=== PATIENT | female | born 1940 | race Caucasian/White ===

== ENCOUNTER 2017-09-14 21:42 | Inpatient (IN) | payer MEDICAID, MEDICARE ==
[~2017-09-14] VITALS: Ht 167.6 cm; Wt 72.6 kg
--- NOTE | 2017-09-14 22:16 | NUR ---
PT TO ER BED 18. BIBRA FROM HOME C/O SOB, PER PARAMEDSICS SATING 89% RA, PLACED ON NRB STERILIZER MACHINE OPERATOR. NOW O2 SAT 100%. RALES BILAT. PT PLACED IN GOWN AND ON PRIMARY SCHOOL TEACHER LIBRARIAN. VSS/RESP TACHYPNEIC/NAD NOTED/SKIN WARM AND DRY/DENIES N-V-D. AWAITING MD MORGAN.
--- NOTE | 2017-09-14 22:30 | NUR ---
20G IV X 1 ATTEMPT TO R HAND USING ASEPTIC TECH, BLOOD CULT X 2 AND BLOOD HANDED OVER TO THE LAB AT THE BEDSIDE. IV FLUSHES EASILY WITH NS, NO S/S INFILTRATION.
[2017-09-14 22:40] LABS: HEMATOCRIT 24 % (33-45); HEMOGLOBIN 7.8 g/dL (11.5-14.8); MEAN CORPUSCULAR HGB CONC 32 g/dl (31.0-36.0); MEAN CORPUSCULAR VOLUME 92 fL (82-100); MONOCYTES % (AUTO) 3.9 % (2.0-12.0); NEUTROPHILS # (AUTO) 23.3 /CMM (1.8-8.9); NEUTROPHILS % (AUTO) 92.1 % (43.0-81.0); PLATELET COUNT (AUTO) 212 /CMM (150-450); RDW COEFFICIENT OF VARIATION 19.2 (11.5-15.0); RED BLOOD CELL COUNT(AUTO) 2.64 MIL/uL (4.0-5.2); WHITE BLOOD COUNT (AUTO) 25.3 K/uL (4.3-11.0)
--- NOTE | 2017-09-14 22:40 | NUR ---
URINE SPECIMEN OBTAINED AND SENT TO THE LAB.
[2017-09-14 22:51] LABS: INR 0.98 (0.87-1.13)
--- NOTE | 2017-09-14 22:51 | NUR ---
XRAY AT BEDSIDE.
--- NOTE | 2017-09-14 22:52 | NUR ---
RECTAL TEMP OF 100.8. MADE AWARE.
[2017-09-14] MEDS ORDERED: ACETAMINOPHEN 650 MG/SUPP.RECT RC ONE ×2 (22:53→23:00)
[2017-09-14 22:55] LABS: APPEARANCE,URINE SL CLOUDY (CLEAR); BILIRUBIN,URINE NEGATIVE (NEGATIVE); BLOOD, URINE TRACE Ery/uL (NEGATIVE); COLOR,URINE YELLOW (YELLOW); KETONES,URINE TRACE (NEGATIVE); LEUKOCYTE ESTERASE ,URINE TRACE (NEGATIVE); NITRITE, URINE NEGATIVE (NEGATIVE); PH,URINE 6.5 (5.0-8.0); PROTEIN,URINE 3+ mg/dl (NEGATIVE); UGLUCOSE 3+ mg/dL (NEGATIVE); UROBILINOGEN,URINE 0.2 EU/dL (0.2)
[2017-09-14 23:01] LABS: BACTERIA,URINE 1+ /HPF (None Seen); SQUAMOUS EPITHELIAL CELL,UR Moderate /HPF (None Seen); WBC,URINE 21-50 /HPF (0-3)
[2017-09-14 23:11] LABS: ALANINE AMINOTRANSFERASE 18 U/L (12-78); ALBUMIN 2.2 g/dL (3.4-5.0); ALKALINE PHOSPHATASE 119 U/L (46-116); ASPARTATE AMINOTRANSFERASE 26 U/L (15-37); BILIRUBIN,DIRECT 0.2 mg/dL (0.0-0.2); BILIRUBIN,TOTAL 0.5 mg/dL (0.2-1.0); CALCIUM, SERUM 8.1 mg/dL (8.5-10.1); CARBON DIOXIDE 31 mmol/L (21-32); CHLORIDE 94 mmol/L (98-107); CREATININE 3.7 mg/dL (0.6-1.3); GLUCOSE 418 mg/dL (74-106); POTASSIUM 3.6 mmol/L (3.5-5.1); SODIUM SERUM 134 mmol/L (136-145); TOTAL PROTEIN, SERUM 7.3 g/dL (6.4-8.2); UREA NITROGEN, BLOOD 39 mg/dL (7-18)
[2017-09-14] MEDS ORDERED: ASPIRIN 300 MG/SUPP.RECT RC ONE ×2 (23:30→23:31)
[2017-09-14] MEDS ORDERED: INSULIN REGULAR, HUMAN 100 UNIT/ML 3 ML VIAL IV ONE (23:30)
[2017-09-14 23:32] LABS: B-TYPE NATRIURETIC PEPTIDE 42340 PG/ML (0-125)
[2017-09-14] MEDS ORDERED: INSULIN REGULAR, HUMAN 100 UNIT/ML 10 ML VIAL ONE (23:32)
--- NOTE | 2017-09-14 23:43 | NUR ---
JOSE ALEJANDRO AT BEDSIDE. DIANA.
[2017-09-14 23:46] LABS: BAND % (MANUAL) 6 % (0.0-5.0); LYMPHOCYTES % (MANUAL) 3 % (16-48); MONOCYTES % (MANUAL) 5 % (0-11.0); NEUTROPHILS % (MANUAL) 86 (42-76)
--- NOTE | 2017-09-14 23:51 | NUR ---
CALLED NURSING SUP. FOR TELE BED
[2017-09-15] MEDS ORDERED: AZITHROMYCIN 500 MG in IV D5W 250 ML IV ONE ×2
[2017-09-15] MEDS ORDERED: CEFTRIAXONE 1GM BAG (ER ONLY) 1 GM/50 ML PIGGYBACK IV ONE
[2017-09-15] MEDS ORDERED: AZITHROMYCIN 500 MG VIAL ONE (00:01)
[2017-09-15] MEDS ORDERED: CEFTRIAXONE 1GM BAG (ER ONLY) 50 ML IV ONE (00:01)
[2017-09-15] MEDS ORDERED: LEVO125T8 PO (00:31)
[2017-09-15] MEDS ORDERED: CYAN100071 PO (00:31)
[2017-09-15] MEDS ORDERED: FOLI1TAB16 PO (00:31)
[2017-09-15] MEDS ORDERED: ASPI-605 PO (00:31)
[2017-09-15] MEDS ORDERED: INSU100V7 SQ (00:31)
[2017-09-15] MEDS ORDERED: ALLO100T PO (00:31)
[2017-09-15] MEDS ORDERED: HYDR100T27 PO (00:31)
[2017-09-15] MEDS ORDERED: SEVE800T8 PO (00:31)
[2017-09-15] MEDS ORDERED: CARV6.252 PO (00:31)
[2017-09-15] MEDS ORDERED: AMIO100T PO (00:31)
[2017-09-15] MEDS ORDERED: ATOR40TA PO (00:31)
[2017-09-15] MEDS ORDERED: FURO-144 PO (00:31)
[2017-09-15] MEDS ORDERED: AMLO5TAB7 PO (00:31)
[2017-09-15] MEDS ORDERED: MEGE40TA GT (00:31)
[2017-09-15] MEDS ORDERED: LISI10TA5 PO (00:31)
--- NOTE | 2017-09-15 00:41 | NUR ---
ENDORSED TO MAYLIN MONTES FOR [facility]I. PT ANDREE TO TELE 306-2.
[2017-09-15 01:00] VITALS: BP 89/45
--- NOTE | 2017-09-15 01:00 | NUR ---
DRY ROOM OPERATORGLOBAL MARKETING OPERATIONS MANAGER NOTE 0100 RECEIVED PT VIA GURMIGUELITO ACCOMPANIED BY ER STAFF AND DEO SCHWAB IN STABLE CONDITION. PT IS ASLEEP, EASILY AROUSABLE. RESPONSIVE UPON NAME AND TOUCH. AFEBRILE. PUPILS ARE REACTIVE TO LIGHT. BILATERAL HAND VETERINARY LABORATORY TECHNICIAN ARE EQUAL. CURRENTLY ON O2 @3L/MIN VIA NC, SATURATING AT 98%. NOTED WITH USE OF ACCESSORY MUSCLES WITH RESPIRATIONS. PT'S BLOOD PRESSURE NOTED TO BE 89/45 UPON ADMISSION, THEN TRENDED DOWN TO 70/41. RECEIVED ORDERS PER JUSTIN ADKINS FOR IV NS 500ML BOLUS. BP INCREASED TO 94/45. ABDOMEN IS ROUND, SOFT AND NONDISTENDED. NO BLADDER DISCOMFORT. IV SITE TO RAC AND LEFT HAND GAUGE 20, NO INFILTRATION NOTED. DRESSING KEPT CLEAN AND DRY. NOTED WITH SACRAL REDNESS, 4 ZACKARY TO AMBIKA (POSSIBLE OLD AV SHUNT), STITCHES NOTED ABOVE PERMA CATH TO LEFT UPPER CHEST. PHOTOS TAKE AND PLACED IN PT'S CHART. DIE SIZER JUSTIN ADKINS AWARE OF ADMISSION WITH ORDERS NOTED AND CARRIED OUT. SAFETY MEASURES ARE IN PLACE. BED IS IN ITS LOW AND LOCKED POSITION. INSTRUCTED PT TO USE CALL LIGHT WHEN ASSISTANCE IS NEEDED, CALL LIGHT IS LEFT WITHIN REACH. WILL CONTINUE TO MONITOR.
--- NOTE | 2017-09-15 01:02 | NUR ---
PT TRANSPORTED VIA STRETCHER TO [facility] 306-2 ON BOILING TUB OPERATOR WITH RN PER ACLS PROTOCOL. VSS.
[2017-09-15] MEDS ORDERED: IV NS 0.9% 500 ML IV ONE (02:00)
[2017-09-15 04:00] VITALS: BP 101/47
[2017-09-15] MEDS ORDERED: HEPARIN INFUSION/D5W 500 ML IV PRN (04:30)
[2017-09-15] MEDS ORDERED: ONDANSETRON HCL/PF 4 MG/2 ML VIAL IVP PRN (04:30)
[2017-09-15] MEDS ORDERED: ACETAMINOPHEN 325 MG TABLET PO PRN (04:30)
[2017-09-15] MEDS ORDERED: MORPHINE SULFATE INJ 2 MG/ML DISP.SYRIN IV PRN (04:30)
[2017-09-15] MEDS ORDERED: IV NS 0.9% 1,000 ML IV PRN (04:30)
[2017-09-15] MEDS: NITROGLYCERIN PACKET 1 GM PACKET TOP SCH ×3 (06:00→17:21)
[2017-09-15] MEDS: BLOOD SUGAR DIAGNOSTIC 1 EACH STRIP IN SCH ×3 (06:11→17:33)
[2017-09-15] MEDS: INSULIN REGULAR, HUMAN 100 UNIT/ML 3 ML VIAL SQ PRN ×3 (06:19→17:35)
--- NOTE | 2017-09-15 06:50 | NUR ---
SPOT WASHER NOTES TRAPPER ANIMAL JUSTIN ADKINS MADE AWARE OF LOW BP AND WITHOLDING TOPICAL NITRO D/T LOW BP W/ NO NEW ORDERS AT THIS TIME. ENDORSED TO DAY SHIFT NURSE.
--- NOTE | 2017-09-15 06:52 | NUR ---
KINDERGARTEN PREP TEACHER CLOSING NOTES NEEDS MET AND RENDERED. SLEEPY BUT EASILY AROUSABLE. RESPIRATIONS ARE EVEN AND UNLABORED, NOT IN ANY ACUTE DISTRESS NOTED. CURRENTLY ON O2 @3L/MIN VIA NC, TOLERATING WELL. NO FACIAL GRIMACING OR MOANING NOTED. IV SITE INTACT, NO INFILTRATION NOTED. DRESSING KEPT CLEAN AND DRY. SAFETY MEASURES ARE IN PLACE. BED IS IN ITS LOWEST AND LOCKED POSITION. WILL ENDORSE TO NEXT SHIFT FOR CONTINUITY OF CARE.
--- NOTE | 2017-09-15 07:05 | NUR ---
RN NOTES PT IS RESTING IN BED, AWAKE, WITH FAMILY AT BEDSIDE. PT ON 3L O2, RESPIRATIONS ARE EVEN AND UNLABORED. IV ON RAC INTACT AND RUNNING NS @ 75ML/HR. SAFETY MEASURES ARE IN PLACE, CALL LIGHT IS IN REACH. WILL CONTINUE TO MONITOR.
[2017-09-15 08:00] VITALS: BP 89/46
[2017-09-15] MEDS: SEVELAMER CARBONATE 800 MG TABLET PO SCH ×3 (08:08→17:33)
[2017-09-15] MEDS: FOLIC ACID 1 MG TABLET PO SCH (08:08)
[2017-09-15] MEDS: LEVOTHYROXINE SODIUM 125 MCG TABLET PO SCH (08:08)
[2017-09-15] MEDS: ALLOPURINOL 100 MG TABLET PO SCH (08:08)
[2017-09-15] MEDS: ASPIRIN EC 81 MG TABLET.DR PO SCH (08:08)
[2017-09-15] MEDS: MEGESTROL ACETATE 40 MG TABLET GT SCH (08:08)
[2017-09-15] MEDS: hydrALAZINE HCL 50 MG TABLET PO SCH ×3 (08:09→17:00)
[2017-09-15] MEDS: AMIODARONE HCL 200 MG TABLET PO SCH (08:09)
[2017-09-15] MEDS ORDERED: LISINOPRIL (10MG) 10 MG TABLET PO SCH (09:00)
[2017-09-15] MEDS ORDERED: ASPIRIN EC 81 MG TABLET.DR PO SCH (09:00)
[2017-09-15] MEDS ORDERED: FUROSEMIDE 40 MG TABLET PO SCH (09:00)
[2017-09-15] MEDS ORDERED: AMLODIPINE BESYLATE 5 MG TABLET PO SCH (09:00)
[2017-09-15] MEDS ORDERED: CARVEDILOL 6.25 MG TABLET PO SCH (09:00)
[2017-09-15] MEDS ORDERED: EPOETIN ALFA (10,000 UNIT) 10,000 UNIT/ML VIAL IV ONE (09:00)
[2017-09-15] MEDS ORDERED: ALBUMIN 25% 25 GM in PREMIX 1 EA IV PRN (10:00)
--- NOTE | 2017-09-15 10:00 | NUR ---
RN NOTES SPOKE WITH PHARMACY ABOUT HEPARIN DRIP ORDERED DURING HEALTH AND SOCIAL CARE TEACHER AT 0430. NO HEPARIN CALCULATION FORM WAS FAXED TO PHARMACY BY HEALTH AND SOCIAL CARE TEACHER RN. NO ENDORSEMENT WAS GIVEN TO START HEPARIN DRIP. WILL FAX HEPARIN DOSING FORM TO PHARMACY TO INITIATE HEPARIN BOLUS AND DRIP.
[2017-09-15 10:46] LABS: EOSINOPHILS % (AUTO) 0.2 % (0.0-6.0); HEMATOCRIT 26 % (33-45); HEMOGLOBIN 8.4 g/dL (11.5-14.8); LYMPHOCYTES # (AUTO) 0.6 /CMM (0.8-4.8); LYMPHOCYTES % (AUTO) 2.2 % (20.0-44.0); MEAN CORPUSCULAR HGB CONC 33 g/dl (31.0-36.0); MEAN CORPUSCULAR VOLUME 92 fL (82-100); MONOCYTES # (AUTO) 1.3 /CMM (0.1-1.30); MONOCYTES % (AUTO) 4.8 % (2.0-12.0); NEUTROPHILS # (AUTO) 25.9 /CMM (1.8-8.9); NEUTROPHILS % (AUTO) 92.8 % (43.0-81.0); PLATELET COUNT (AUTO) 209 /CMM (150-450); RDW COEFFICIENT OF VARIATION 19.9 (11.5-15.0); RED BLOOD CELL COUNT(AUTO) 2.82 MIL/uL (4.0-5.2); WHITE BLOOD COUNT (AUTO) 27.9 K/uL (4.3-11.0)
[2017-09-15] MEDS ORDERED: FEE PK DOSING 1 MIN EA MC ONE (11:23)
[2017-09-15] MEDS ORDERED: VANCOMYCIN 500 MG in IV D5W 100 ML IV PRN (11:30)
[2017-09-15] MEDS ORDERED: HEPARIN SODIUM, PORCINE 5000 UNITS/1 ML VIAL IV ONE (11:30)
--- NOTE | 2017-09-15 11:40 | NUR ---
RN NOTES SPOKE WITH DR. BELL ABOUT STARTING HEPARIN DRIP. DR. BELL SAID TO DISCONTINUE THE DRIP AND INSTEAD ORDER HEPARIN 5,000 UNITS Q12 HRS.
[2017-09-15] MEDS: PIPERACILLIN /TAZOBACTAM 2.25 G in IV D5W 50 ML IV SCH ×2 (12:18→20:51)
[2017-09-15] MEDS: HEPARIN SODIUM, PORCINE 5000 UNITS/1 ML VIAL SQ SCH ×2 (12:20→20:59)
--- NOTE | 2017-09-15 12:47 | NUR ---
RN NOTES PT DOES NOT WANT TO EAT AT THIS TIME, TIRED FROM DIALYSIS. DID NOT GIVE REGULAR INSULIN WITH ACCUCHECK TO PREVENT HYPOGLYCEMIA.
[2017-09-15] MEDS ORDERED: VANCOMYCIN 1 GM in IV D5W 250 ML IV ONE (13:00)
[2017-09-15 13:28] LABS: ALANINE AMINOTRANSFERASE 18 U/L (12-78); ALBUMIN 2.1 g/dL (3.4-5.0); ALKALINE PHOSPHATASE 123 U/L (46-116); ASPARTATE AMINOTRANSFERASE 26 U/L (15-37); BILIRUBIN,TOTAL 0.4 mg/dL (0.2-1.0); CALCIUM, SERUM 8.2 mg/dL (8.5-10.1); CARBON DIOXIDE 33 mmol/L (21-32); CHLORIDE 97 mmol/L (98-107); CREATININE 2.5 mg/dL (0.6-1.3); GLUCOSE 189 mg/dL (74-106); SODIUM SERUM 136 mmol/L (136-145); TOTAL PROTEIN, SERUM 7.2 g/dL (6.4-8.2); UREA NITROGEN, BLOOD 24 mg/dL (7-18)
[2017-09-15 13:32] LABS: POTASSIUM 2.8 mmol/L (3.5-5.1)
[2017-09-15 13:36] LABS: BAND % (MANUAL) 5 % (0.0-5.0); LYMPHOCYTES % (MANUAL) 3 % (16-48); MONOCYTES % (MANUAL) 2 % (0-11.0); NEUTROPHILS % (MANUAL) 90 (42-76)
--- NOTE | 2017-09-15 13:54 | NUR ---
RN NOTES NOTIFIED POTASSIUM DROPPED FROM 3.6 LAST NIGHT TO 2.8 THIS AFTERNOON, POST DIALYSIS. DR. BHARDWAJ WAS MADE AWARE AND SAID IT DOES NOT NEED TO BE REPLACED AT THIS TIME.
[2017-09-15 16:00] VITALS: BP 95/50
--- NOTE | 2017-09-15 17:20 | NUR ---
RN NOTES PRELIMINARY BLOOD CULTURE CAME BACK POSITIVE. NOTIFIED DR. BHARDWAJ, NO NEW ORDERS NEEDED AT THIS TIME.
[2017-09-15] MEDS ORDERED: ATORVASTATIN 40 MG TABLET PO SCH (18:00)
--- NOTE | 2017-09-15 18:39 | NUR ---
RN NOTES PT IS SITTING UP IN BED, RESTING COMFORTABLY. PT ON 3L O2, RESPIRATIONS ARE EVEN AND UNLABORED. IV ON LAC INTACT AND SL. ALL MEDS WERE GIVEN ORDERED AND PT NEEDS MET. PT HAD DIALYSIS WITH 2.8L OUTPUT. LAST ACCUCHECK 217, 8 UNITS GIVEN. SAFETY MEASURES ARE IN PLACE, CALL LIGHT IS IN REACH. WILL ENDORSE TO BAFFLE INSTALLER RN FOR CONTINUITY OF CARE.
--- NOTE | 2017-09-15 19:05 | NUR ---
RN OPENING NOTES RECEIVED PATIENT IN BED, ASLEEP, AROUSABLE WITH TOUCH, OPENED EYES, NODDED AND WENT BACK TO SLEEP. PATIENT NOTED TO BE RECEIVING O2 VIA NC @3LPM, NO SOB, BREATHING EVEN AND UNLABORED AND IN NO ACUTE DISTRESS. PATIENT ON TELE MONITORING HR @70 BPM. WILL CONTINUE TO MONITOR PT.
[2017-09-15 20:00] VITALS: BP 92/42
[2017-09-15] MEDS: INSULIN GLARGINE, 100 UNIT/ML CARTRIDGE SQ SCH (21:35)
[2017-09-15] MEDS ORDERED: AZITHROMYCIN 500 MG in IV D5W 250 ML IV SCH (23:00)
[2017-09-16] VITALS: BP 91/46
[2017-09-16] MEDS ORDERED: CEFTRIAXONE 1 G in IV NS 0.9% 50 ML IV SCH ×2
[2017-09-16] MEDS: BLOOD SUGAR DIAGNOSTIC 1 EACH STRIP IN SCH ×5 (00:03→23:55)
[2017-09-16] MEDS: INSULIN REGULAR, HUMAN 100 UNIT/ML 3 ML VIAL SQ PRN ×3 (00:22→12:05)
[2017-09-16 04:00] VITALS: BP 97/43
[2017-09-16] MEDS: PIPERACILLIN /TAZOBACTAM 2.25 G in IV D5W 50 ML IV SCH ×3 (04:19→21:25)
[2017-09-16] MEDS: NITROGLYCERIN PACKET 1 GM PACKET TOP SCH ×2 (06:00)
[2017-09-16 06:25] LABS: BASOPHILS % (AUTO) 0.1 % (0.0-2.0); EOSINOPHILS % (AUTO) 0.5 % (0.0-6.0); HEMATOCRIT 25 % (33-45); HEMOGLOBIN 8.3 g/dL (11.5-14.8); LYMPHOCYTES % (AUTO) 3.9 % (20.0-44.0); MEAN CORPUSCULAR HGB CONC 33 g/dl (31.0-36.0); MEAN CORPUSCULAR VOLUME 93 fL (82-100); MONOCYTES # (AUTO) 1.4 /CMM (0.1-1.30); MONOCYTES % (AUTO) 5.4 % (2.0-12.0); NEUTROPHILS # (AUTO) 22.6 /CMM (1.8-8.9); NEUTROPHILS % (AUTO) 90.1 % (43.0-81.0); PLATELET COUNT (AUTO) 194 /CMM (150-450); RED BLOOD CELL COUNT(AUTO) 2.72 MIL/uL (4.0-5.2); WHITE BLOOD COUNT (AUTO) 25.1 K/uL (4.3-11.0)
[2017-09-16 07:02] LABS: CHOLESTEROL 112 mg/dL (<200); HDL CHOLESTEROL 20 mg/dL (40-60); LDL 46 mg/dL (0-99); THYROID STIMULATING HORMONE 8.872 uIU/mL (0.358-3.74); TRIGLYCERIDES 135 mg/dL (30-150)
--- NOTE | 2017-09-16 07:02 | NUR ---
RN CLOSING TELE NOTES PATIENT IN BED, ASLEEP, AROUSABLE BY TOUCH, IN NO ACUTE DISTRESS, NO SOB NOTED, BREATHING EVEN AND UNLABORED, CONTINUES TO RECEIVE 02 VIA NC @ 3LPM, PATIENT ALERT AND ORIENTED X 2-3, ABLE TO MAKE NEEDS KNOWN AT TIMES. CALL LIGHT PLACED WITHIN EASY REACH, BED LOCKED IN LOW POSITION, ON TELE MONITORING WITH SR@ 70 BPM. WILL ENDORSE TO AM SHIFT NURSE FOR CONTINUITY OF CARE.
[2017-09-16 07:10] LABS: ALANINE AMINOTRANSFERASE 21 U/L (12-78); ALBUMIN 1.9 g/dL (3.4-5.0); ALKALINE PHOSPHATASE 103 U/L (46-116); ASPARTATE AMINOTRANSFERASE 23 U/L (15-37); BILIRUBIN,TOTAL 0.4 mg/dL (0.2-1.0); CALCIUM, SERUM 7.9 mg/dL (8.5-10.1); CARBON DIOXIDE 31 mmol/L (21-32); CHLORIDE 94 mmol/L (98-107); CREATININE 3.8 mg/dL (0.6-1.3); GLUCOSE 211 mg/dL (74-106); MAGNESIUM 2.1 mg/dL (1.8-2.4); PHOSPHORUS 3.2 mg/dL (2.5-4.9); SODIUM SERUM 134 mmol/L (136-145); TOTAL PROTEIN, SERUM 6.8 g/dL (6.4-8.2); UREA NITROGEN, BLOOD 39 mg/dL (7-18)
--- NOTE | 2017-09-16 07:11 | NUR ---
COMPRESS ENGINEER OPENING NOTE RECEIVED BEDSIDE SBAR REPORT ON THE PATIENT. PATIENT IS A/O X2, ASLEEP, EASILY AWAKEN IN BED. PATIENT NODS WITH THE HEAD TO ANSWER ALL THE QUESTIONS, BUT DOES NOT LIKE TO SPEAK. PATIENT IS LAYING IN BED. BED IS LOCKED IN LOWEST POSITION, SIDE RAILS UP X3. BED ALARM IS ON. CHEST IS RISING EQUALLY BILATERALLY. DENIES CHEST PAIN/DISCOMFORT AT THIS TIME. EXTERNAL HYDROPRESS OPERATOR READING AFIB 82. RCW CARDIAC PACEMAKER PRESENT. PATIENT IS ON 3L VIA NASAL CANULA SPO2 95%. ALL NEEDS ARE MET. CALL LIGHT WITHIN REACH. EDUCATED TO USE CALL LIGHT TO CALL FOR ASSISTANCE. PATIENT VERBALIZED UNDERSTANDING. WILL CONTINUE TO ASSESS/MONITOR THROUGHOUT THE SHIFT.
[2017-09-16 08:00] VITALS: BP 94/54
--- NOTE | 2017-09-16 08:12 | NUR ---
PATIENT RECEIVING BED BATH. WILL COME TO ADMINISTER MEDIATION LATER.
[2017-09-16 09:25] LABS: BAND % (MANUAL) 8 % (0.0-5.0); EOSINOPHILS % (MANUAL) 1 % (0-4); LYMPHOCYTES % (MANUAL) 1 % (16-48); MONOCYTES % (MANUAL) 6 % (0-11.0); MYELOCYTES % 1 % (0-0); NEUTROPHILS % (MANUAL) 83 (42-76)
[2017-09-16] MEDS: ALLOPURINOL 100 MG TABLET PO SCH (09:36)
[2017-09-16] MEDS: FOLIC ACID 1 MG TABLET PO SCH (09:37)
[2017-09-16] MEDS: LEVOTHYROXINE SODIUM 125 MCG TABLET PO SCH (09:37)
[2017-09-16] MEDS: ASPIRIN EC 81 MG TABLET.DR PO SCH (09:39)
[2017-09-16] MEDS: MEGESTROL ACETATE 40 MG TABLET GT SCH (09:39)
[2017-09-16] MEDS: SEVELAMER CARBONATE 800 MG TABLET PO SCH ×3 (09:39→17:35)
[2017-09-16] MEDS: AMIODARONE HCL 200 MG TABLET PO SCH (09:39)
[2017-09-16] MEDS: HEPARIN SODIUM, PORCINE 5000 UNITS/1 ML VIAL SQ SCH ×2 (09:43→21:28)
--- NOTE | 2017-09-16 09:52 | NUR ---
Called pharmacy to charge K-Dur to a different form. PAtient unable to swallow big pills.
[2017-09-16] MEDS ORDERED: POTASSIUM CHLORIDE 20 MEQ TAB.PRT.SR PO SCH (10:00)
[2017-09-16 10:01] LABS: IRON, SERUM 50 ug/dl (50-175); TOTAL IRON BINDING CAPACITY 88 ug/dl (250-450)
[2017-09-16] MEDS: POTASSIUM CHLORIDE 20 MEQ POWDER PACKET PO SCH ×2 (10:11→12:21)
[2017-09-16 10:37] LABS: FERRITIN 6900 ng/mL (8-388)
[2017-09-16] MEDS ORDERED: POTASSIUM CHLORIDE 20 MEQ TAB.PRT.SR PO ONE (11:30)
[2017-09-16] MEDS: Z GUARD REMEDY 2 OZ OINT TP PRN (12:07)
--- NOTE | 2017-09-16 12:09 | NUR ---
potassium administered at 1150. system is not saving will try again.
[2017-09-16 16:00] VITALS: BP 106/46
--- NOTE | 2017-09-16 17:12 | NUR ---
Patient's family at the bedside. Per family patient is receiving Fluoxetine 10 mg PO daily for depression. Family requested fro MD to consider to continue this medication. Called Dr. Suh and left a message through [employer].
[2017-09-16] MEDS: LACTOBACILLUS RHAMNOSUS GG 1 EACH CAP.SPRINK PO SCH (17:35)
--- NOTE | 2017-09-16 17:36 | NUR ---
Patient's granddaughter at the bedside. Discussed patient's plan of care.
--- NOTE | 2017-09-16 17:42 | NUR ---
lab called reporting patient having MRSA in blood. Charge nurse Gamaliel lacy Called Dr. Jaramillo through [employer]. Awaiting for a call back
--- NOTE | 2017-09-16 17:59 | NUR ---
BLOOD SUGAR READING 166 MG/DL. PATIENT REFUSES TO EAT. DID NOT EAT ANYTHING SINCE BREAKFAST. INSULIN NOT-ADMINISTERED.
--- NOTE | 2017-09-16 18:55 | NUR ---
No phone call received from Dr. Suh.
--- NOTE | 2017-09-16 18:58 | NUR ---
MS RN CLOSING NOTE PATIENT IS A/O X2, ASLEEP, EASILY AWAKEN IN BED. PATIENT NODS WITH THE HEAD TO ANSWER ALL THE QUESTIONS, BUT DOES NOT SPEAK. PATIENT IS LAYING IN BED. BED IS LOCKED IN LOWEST POSITION, SIDE RAILS UP X3. BED ALARM IS ON. CHEST IS RISING EQUALLY BILATERALLY. DENIES CHEST PAIN/DISCOMFORT AT THIS TIME. PATIENT IS ON 3L VIA NASAL CANULA SPO2 95%. ALL NEEDS ARE MET. CALL LIGHT WITHIN REACH. EDUCATED TO USE CALL LIGHT TO CALL FOR ASSISTANCE. PATIENT VERBALIZED UNDERSTANDING. WILL ENDORSE TO THE SKIRT PANEL ASSEMBLER NURSE FOR [facility]I.
--- NOTE | 2017-09-16 19:15 | NUR ---
RN OPENING NOTES RECEIVED PATIENT IN BED, ALERT AND ORIENTED X 2, RESPONSIVE TO TOUCH, IN NO ACUTE DISTRESS, NOTED WITH NO SOB, BREATHING EVEN AND UNLABORED WHILE RECEIVING O2 @ 3LPM VIA NC. CALL LIGHT WITHIN EASY REACH, BED IN LOW POSITION AND LOCKED IN PLACE. WILL CONTINUE TO MONITOR PT.
[2017-09-16 20:00] VITALS: BP 112/49
[2017-09-16] MEDS: INSULIN GLARGINE, 100 UNIT/ML CARTRIDGE SQ SCH (22:00)
--- NOTE | 2017-09-17 | NUR ---
RN NOTES PATIENT ACCUCHECK DONE WITH BLOOD SUGAR @ 152. PER AM NURSE'S REPORT, PATIENT REFUSED DINNER. NO INSULIN COVERAGE GIVEN. ENCOURAGED PATIENT TO HAVE A SNACK BUT PATIENT DISAGREED AND REMAINED INDIFFERENT. EXPLAINED RISKS TO PATIENT BUT PT REMAINED INDIFFERENT. WILL CONTINUE TO MONITOR THIS PT.
[2017-09-17] MEDS: PIPERACILLIN /TAZOBACTAM 2.25 G in IV D5W 50 ML IV SCH ×3 (05:00→21:54)
--- NOTE | 2017-09-17 06:00 | NUR ---
RN NOTE PATIENT ACCUCHECK DONE WITH BLOOD SUGAR @ 185. NO INSULIN GIVEN PATIENT ONLY HAD A JUICE BOX THE WHOLE NIGHT. WILL CONTINUE TO MONITOR PATIENT.
[2017-09-17] MEDS ORDERED: FLUO-119 PO (06:08)
[2017-09-17] MEDS: BLOOD SUGAR DIAGNOSTIC 1 EACH STRIP IN SCH ×3 (06:56→17:18)
--- NOTE | 2017-09-17 07:40 | NUR ---
RN CLOSING NOTES PATIENT IN BED, ALERT AND ORIENTED X 2, NOTED WITH NO SOB, IN NO ACUTE DISTRESS AND IN STABLE CONDITION. ATTENDED TO PATIENT'S NEEDS THROUGHOUT SHIFT. CALL LIGHT IN EASY REACH. PLACED BED IN LOW POSITION AND LOCKED IN PLACE. WILL ENDORSE TO AM SHIFT NURSE FOR CONTINUITY OF CARE.
--- NOTE | 2017-09-17 07:49 | NUR ---
MS/RN OPENING NOTE PATIENT IN BED IN STABLE CONDITION. A/O X 2. NO SIGNS OF ACUTE DISTRESS. NO COMPLAIN OF PAIN OR DISCOMFORT. ON ISOLATION FOR MRSA BLOOD. TOLERATING WELL. ALL NEEDS ATTENDED TO. CALL LIGHT WITHIN REACH. WILL CONTINUE TO MONITOR TO ENSURE SAFETY.
[2017-09-17 08:00] VITALS: BP 102/49
[2017-09-17] MEDS: LACTOBACILLUS RHAMNOSUS GG 1 EACH CAP.SPRINK PO SCH ×2 (08:23→17:19)
[2017-09-17] MEDS: ASPIRIN EC 81 MG TABLET.DR PO SCH (08:23)
[2017-09-17] MEDS: ALLOPURINOL 100 MG TABLET PO SCH (08:24)
[2017-09-17] MEDS: SEVELAMER CARBONATE 800 MG TABLET PO SCH ×3 (08:24→17:19)
[2017-09-17] MEDS: MEGESTROL ACETATE 40 MG TABLET GT SCH (08:24)
[2017-09-17] MEDS: FOLIC ACID 1 MG TABLET PO SCH (08:24)
[2017-09-17] MEDS: HEPARIN SODIUM, PORCINE 5000 UNITS/1 ML VIAL SQ SCH ×3 (08:25→22:22)
[2017-09-17] MEDS: AMIODARONE HCL 200 MG TABLET PO SCH (08:25)
[2017-09-17] MEDS: LEVOTHYROXINE SODIUM 125 MCG TABLET PO SCH (08:31)
[2017-09-17] MEDS ORDERED: EPOETIN ALFA (10,000 UNIT) 10,000 UNIT/ML VIAL IV ONE (11:30)
[2017-09-17 12:16] LABS: BASOPHILS # (AUTO) 0.1 /CMM (0.0-0.2); BASOPHILS % (AUTO) 0.6 % (0.0-2.0); EOSINOPHILS % (AUTO) 0.5 % (0.0-6.0); HEMATOCRIT 27 % (33-45); HEMOGLOBIN 8.7 g/dL (11.5-14.8); LYMPHOCYTES % (AUTO) 6.3 % (20.0-44.0); MEAN CORPUSCULAR HGB CONC 33 g/dl (31.0-36.0); MEAN CORPUSCULAR VOLUME 91 fL (82-100); MONOCYTES # (AUTO) 0.6 /CMM (0.1-1.30); MONOCYTES % (AUTO) 3.9 % (2.0-12.0); NEUTROPHILS # (AUTO) 14.3 /CMM (1.8-8.9); NEUTROPHILS % (AUTO) 88.7 % (43.0-81.0); PLATELET COUNT (AUTO) 184 /CMM (150-450); RDW COEFFICIENT OF VARIATION 19.5 (11.5-15.0); RED BLOOD CELL COUNT(AUTO) 2.92 MIL/uL (4.0-5.2); WHITE BLOOD COUNT (AUTO) 16.1 K/uL (4.3-11.0)
[2017-09-17] MEDS: INSULIN REGULAR, HUMAN 100 UNIT/ML 3 ML VIAL SQ PRN ×2 (12:38→17:26)
[2017-09-17 12:41] LABS: ALANINE AMINOTRANSFERASE 34 U/L (12-78); ALBUMIN 1.9 g/dL (3.4-5.0); ALKALINE PHOSPHATASE 196 U/L (46-116); ASPARTATE AMINOTRANSFERASE 42 U/L (15-37); BILIRUBIN,TOTAL 0.5 mg/dL (0.2-1.0); CALCIUM, SERUM 8.3 mg/dL (8.5-10.1); CARBON DIOXIDE 30 mmol/L (21-32); CHLORIDE 94 mmol/L (98-107); CREATININE 3.9 mg/dL (0.6-1.3); GLUCOSE 244 mg/dL (74-106); PHOSPHORUS 3.3 mg/dL (2.5-4.9); POTASSIUM 3.5 mmol/L (3.5-5.1); SODIUM SERUM 133 mmol/L (136-145); UREA NITROGEN, BLOOD 45 mg/dL (7-18)
[2017-09-17 14:09] LABS: LYMPHOCYTES % (MANUAL) 9 % (16-48); MONOCYTES % (MANUAL) 2 % (0-11.0); NEUTROPHILS % (MANUAL) 89 (42-76)
--- NOTE | 2017-09-17 15:58 | NUR ---
MS/RN CONSENT OBTAINED TELEPHONE CONSENT FOR TRANSESOPHAGEAL ECHO OBTAINED FROM SIMBA ALMANZAR WITNESSED BY TEMI CARLISLE
[2017-09-17 16:00] VITALS: BP 111/53
--- NOTE | 2017-09-17 16:29 | NUR ---
MS/RN S/P LEFT UPPER ARM ZACKARY REMOVAL S/P LEFT UPPER ARM ZACKARY REMOVAL BY DR BRYAN, TOLERATED WELL. NO BLEEDING NOTED. COVER WITH MEPILEX.
--- NOTE | 2017-09-17 17:48 | NUR ---
MS/RN PAGED DR BELL PAGED DR BELL TO MAKE AWARE THAT CONSENT FOR TE IS OBTAINED. AWAITING FOR CALL BACK.
--- NOTE | 2017-09-17 18:18 | NUR ---
MS/RN CLOSING NOTE PATIENT IN BED IN STABLE CONDITION. A/O X 2. NO SIGNS OF ACUTE DISTRESS. NO COMPLAIN OF PAIN OR DISCOMFORT. ON CONTACT ISOLATION FOR MRSA BLOOD. ALL NEEDS ATTENDED TO. CALL LIGHT WITHIN REACH. WILL ENDORSE TO NEXT SHIFT FOR CONTINUITY OF CARE.
--- NOTE | 2017-09-17 19:37 | NUR ---
RN NOTES Spoke with Dr Meredith and as per MD no definite time yet for the procedure tomorrow. As per MD they will just take care of it tomorrow morning. Endorsed.
[2017-09-17 20:00] VITALS: BP 109/52
[2017-09-17 20:16] VITALS: BP 109/52
[2017-09-17] MEDS: NEOMY SULF/BACITRAC ZN/POLY 15 GM TUBE TP SCH (21:55)
[2017-09-17] MEDS: INSULIN GLARGINE, 100 UNIT/ML CARTRIDGE SQ SCH (21:56)
--- NOTE | 2017-09-18 00:22 | NUR ---
RN NOTES No acute change in condition. patient sleeping comfortably. All due meds given. Blood sugar cjeck done, no s/s of hypo/hyperglycemia. Patient noted to have confusion at times, reality orientation provided. All nursing needs attended. held Regular insulin sliding scale, Patient is NPO after midnight. foundation digger Zayda made aware. Will endorse to the next RN.
[2017-09-18] MEDS: PIPERACILLIN /TAZOBACTAM 2.25 G in IV D5W 50 ML IV SCH ×3 (05:17→20:48)
[2017-09-18] MEDS: BLOOD SUGAR DIAGNOSTIC 1 EACH STRIP IN SCH ×5 (05:17→23:52)
--- NOTE | 2017-09-18 06:54 | NUR ---
ms rn note patient stable. All needs met and attended to. Pt. NPO since midnight for SAMIR procedure. Will endorse to day shift for jenn.
--- NOTE | 2017-09-18 07:09 | NUR ---
MS/RN OPENING NOTE PATIENT IN BED IN STABLE CONDITION. A/O X 2, NO SIGNS OF ACUTE DISTRESS. NO COMPLAIN OF PAIN OR DISCOMFORT. NPO STATUS SECONDARY TO T.E. PROCEDURE SCHEDULE. ALL NEEDS ATTENDED TO. CALL LIGHT WITHIN REACH. WILL CONTINUE TO MONITOR TO ENSURE SAFETY.
[2017-09-18] MEDS: LEVOTHYROXINE SODIUM 125 MCG TABLET PO SCH (07:30)
[2017-09-18 08:00] VITALS: BP 111/58
[2017-09-18] MEDS: SEVELAMER CARBONATE 800 MG TABLET PO SCH ×3 (08:00→17:05)
[2017-09-18] MEDS: AMIODARONE HCL 200 MG TABLET PO SCH (08:37)
[2017-09-18] MEDS: FOLIC ACID 1 MG TABLET PO SCH (08:37)
[2017-09-18] MEDS: LACTOBACILLUS RHAMNOSUS GG 1 EACH CAP.SPRINK PO SCH ×2 (08:37→17:05)
[2017-09-18] MEDS: ASPIRIN EC 81 MG TABLET.DR PO SCH (08:37)
[2017-09-18] MEDS: MEGESTROL ACETATE 40 MG TABLET GT SCH (08:37)
[2017-09-18] MEDS: HEPARIN SODIUM, PORCINE 5000 UNITS/1 ML VIAL SQ SCH ×2 (08:38→21:01)
[2017-09-18] MEDS: ALLOPURINOL 100 MG TABLET PO SCH (08:38)
--- NOTE | 2017-09-18 08:40 | NUR ---
MS/RN HEPARIN HELD HEPARIN HELD SECONDARY TO PATIENT SCHEDULE FOR T.E. PROCEDURE.
--- NOTE | 2017-09-18 10:20 | NUR ---
MS/RN SPOKE WITH DR BELL SPOKE WITH DR BELL, PER DR BELL T.E. PROCEDURE IS CANCELLED AND OKAY TO FEED PATIENT .
[2017-09-18] MEDS: INSULIN REGULAR, HUMAN 100 UNIT/ML 3 ML VIAL SQ PRN ×3 (12:25→23:55)
[2017-09-18] MEDS ORDERED: BRIM5DRO3 EACHEYE (15:14)
[2017-09-18] MEDS ORDERED: LATA2.5D7 EACHEYE (15:14)
[2017-09-18 16:00] VITALS: BP 108/60
--- NOTE | 2017-09-18 18:14 | NUR ---
MS/RN CLOSING NOTE PATIENT IN BED IN STABLE CONDITION. A/O X 2. NO SIGNS OF ACUTE DISTRESS. NO COMPLAIN OF PAIN OR DISCOMFORT. ALL NEEDS ATTENDED TO. CALL LIGHT WITHIN REACH. WILL ENDORSE TO NEXT SHIFT FOR CONTINUITY OF CARE.
--- NOTE | 2017-09-18 19:15 | NUR ---
MS RN OPENING NOTE RECEIVED PATIENT IN BED, ALERT ORIENTED X 3, ON 2L OXYGEN VIA NC, TOLERATING WELL. IN NO APPARENT DISTRESS OR DISCOMFORT NOTED AT THIS TIME, DENIES PAIN AND SOB. PATIENT WITH RIGHT AC IV 20G SL. PATENT AND INTACT, NO INFILTRATION NOTED AT THIS TIME. L CHEST WALL PERMA CATH, RECEIVES DIALYSIS. ISOLATION PRECAUTIONS OBSERVED BY ROOM. FAMILY AT BEDSIDE AT THIS TIME. PATIENT ABLE TO VERBALIZE NEEDS. KEPT CLEAN AND COMFORTABLE. SAFETY MEASURES IN PLACE, BED IN LOW LOCKED POSITION, SIDE RAILS UP X2, CALL LIGHT WITHIN EASY REACH. WILL CONTINUE TO MONITOR.
[2017-09-18 20:00] VITALS: BP 101/53
[2017-09-18] MEDS: NEOMY SULF/BACITRAC ZN/POLY 15 GM TUBE TP SCH (20:47)
[2017-09-18] MEDS: INSULIN GLARGINE, 100 UNIT/ML CARTRIDGE SQ SCH (21:30)
[2017-09-19] MEDS: BLOOD SUGAR DIAGNOSTIC 1 EACH STRIP IN SCH ×4 (05:15→22:40)
[2017-09-19] MEDS: DEXTROSE 50%-WATER 50 ML DISP.SYRIN IV PRN (05:16)
--- NOTE | 2017-09-19 05:17 | NUR ---
MS RN NOTE CHECKED PATIENT'S MORNING BLOOD SUGAR LEVEL. CRITICALLY LOW VALUE OF 39 MG/DL ON THE MONITOR. RECHECKED ON A DIFFERENT FINGER LEVEL SHOWED 39 MG/DL. INITIATED HYPOGLYCEMIC PROTOCOL. INJECTED DEXTROSE 50ML IMMEDIATELY. WILL CONTINUE TO MONITOR.
[2017-09-19] MEDS: PIPERACILLIN /TAZOBACTAM 2.25 G in IV D5W 50 ML IV SCH ×3 (05:27→20:32)
--- NOTE | 2017-09-19 05:40 | NUR ---
MS RN NOTE PATIENT BLOOD GLUCOSE RECHECKED AFTER DEXTROSE ADMINISTRATION. LEVEL INCREASED TO 141 MG/DL. PATIENT LOC INCREASED, FOLLOWS COMMANDS, RESPONDS BY NODDING HEAD. WILL CONTINUE TO MONITOR.
[2017-09-19] MEDS: LEVOTHYROXINE SODIUM 125 MCG TABLET PO SCH (07:30)
--- NOTE | 2017-09-19 07:30 | NUR ---
MS RN CLOSING NOTE PATIENT IN BED, SLEEPING, AWOKEN TO VERBAL AND PHYSICAL STIMULI, ORIENTED X2, SLIGHTLY LETHARGIC, ON 2L OXYGEN VIA NC, TOLERATING WELL. IN NO APPARENT DISTRESS OR DISCOMFORT NOTED AT THIS TIME. PATIENT WITH RIGHT AC IV 20G SL. PATENT AND INTACT, NO INFILTRATION NOTED AT THIS TIME. L CHEST WALL PERMA CATH, RECEIVES DIALYSIS. ISOLATION PRECAUTIONS OBSERVED. PATIENT HAD AND EPISODE OF HYPOGLYCEMIC STATE DURING THE SHIFT. BG OF 35, PROTOCOL INITIATED, CHARGE NURSE NOTIFIED, RECHECKED BLOOD GLUCOSE AND IT WAS ELEVATED TO 141. CLOSELY MONITORED FOR THE REST OF THE SHIFT. PATIENT WAS SPEAKING AFTERWARDS AND UNDERSTANDING CONCEPTS. PATIENT ABLE TO VERBALIZE NEEDS. KEPT CLEAN AND COMFORTABLE. SAFETY MEASURES IN PLACE, BED IN LOW LOCKED POSITION, SIDE RAILS UP X2, CALL LIGHT WITHIN EASY REACH. WILL ENDORSE TO AM NURSE FOR [facility]I.
[2017-09-19 08:00] VITALS: BP 121/72
[2017-09-19] MEDS: SEVELAMER CARBONATE 800 MG TABLET PO SCH ×3 (08:00→17:58)
[2017-09-19 08:08] LABS: BASOPHILS % (AUTO) 0.1 % (0.0-2.0); EOSINOPHILS % (AUTO) 0.9 % (0.0-6.0); HEMATOCRIT 28 % (33-45); HEMOGLOBIN 9.2 g/dL (11.5-14.8); LYMPHOCYTES # (AUTO) 0.8 /CMM (0.8-4.8); LYMPHOCYTES % (AUTO) 4.7 % (20.0-44.0); MEAN CORPUSCULAR HGB CONC 33 g/dl (31.0-36.0); MEAN CORPUSCULAR VOLUME 92 fL (82-100); MONOCYTES # (AUTO) 1.2 /CMM (0.1-1.30); MONOCYTES % (AUTO) 7.1 % (2.0-12.0); NEUTROPHILS # (AUTO) 15.4 /CMM (1.8-8.9); NEUTROPHILS % (AUTO) 87.2 % (43.0-81.0); PLATELET COUNT (AUTO) 191 /CMM (150-450); RDW COEFFICIENT OF VARIATION 19.9 (11.5-15.0); RED BLOOD CELL COUNT(AUTO) 3.06 MIL/uL (4.0-5.2); WHITE BLOOD COUNT (AUTO) 17.6 K/uL (4.3-11.0)
[2017-09-19 08:41] LABS: CALCIUM, SERUM 8.8 mg/dL (8.5-10.1); CARBON DIOXIDE 30 mmol/L (21-32); CHLORIDE 93 mmol/L (98-107); CREATININE 4.7 mg/dL (0.6-1.3); GLUCOSE 107 mg/dL (74-106); MAGNESIUM 2.6 mg/dL (1.8-2.4); PHOSPHORUS 5.1 mg/dL (2.5-4.9); POTASSIUM 3.7 mmol/L (3.5-5.1); SODIUM SERUM 134 mmol/L (136-145); UREA NITROGEN, BLOOD 57 mg/dL (7-18)
[2017-09-19] MEDS: HEPARIN SODIUM, PORCINE 5000 UNITS/1 ML VIAL SQ SCH ×2 (09:00→21:40)
[2017-09-19] MEDS: AMIODARONE HCL 200 MG TABLET PO SCH (09:00)
[2017-09-19] MEDS: MEGESTROL ACETATE 40 MG TABLET GT SCH (09:00)
[2017-09-19] MEDS: CYANOCOBALAMIN 500 MCG TABLET PO SCH (09:00)
[2017-09-19] MEDS: LACTOBACILLUS RHAMNOSUS GG 1 EACH CAP.SPRINK PO SCH ×2 (09:00→17:58)
[2017-09-19] MEDS: Fluoxetine 10 mg capsule PO SCH (09:00)
[2017-09-19] MEDS: ASPIRIN EC 81 MG TABLET.DR PO SCH (09:00)
[2017-09-19] MEDS: ALLOPURINOL 100 MG TABLET PO SCH (09:00)
[2017-09-19] MEDS: FOLIC ACID 1 MG TABLET PO SCH (09:00)
[2017-09-19] MEDS: BRIMONIDINE TARTRATE OPHT SOLN 5 ML BOTTLE EACHEYE SCH ×2 (10:05→18:03)
[2017-09-19] MEDS ORDERED: VANCOMYCIN 1 GM in IV D5W 250 ML IV ONE (13:00)
[2017-09-19] MEDS: INSULIN REGULAR, HUMAN 100 UNIT/ML 3 ML VIAL SQ PRN ×2 (14:00→18:05)
[2017-09-19 16:00] VITALS: BP 104/52
--- NOTE | 2017-09-19 17:30 | NUR ---
HAD DIALYSIS,ONE LITER REMOVED.TOLERATED WELL,VS STABLE.
[2017-09-19] MEDS: LATANOPROST EYE DROP 0.005% 2.5 ML BOTTLE EACHEYE SCH (18:00)
--- NOTE | 2017-09-19 18:30 | NUR ---
APPETITE POOR,REFUSING A LOT OF MEDS,AFFECT FLAT,SEEMS DEPRESSED.
--- NOTE | 2017-09-19 19:40 | NUR ---
MS/RN OPENING NOTES PATIENT IN BED, RESTING COMFORTABLY IN BED, RESPIRATIONS EVEN AND UNLABORED, CALL LIGHTS WITHIN REACH, RECEIVED REPORT FROM AM RN FOR NHI, PATIETNON CONTACT ISOLATION, REQUIRE MONITORING FOR SOB, AND TO PROVIDE SNACKS, WILL MONITOR. BED IN LOCK POSITION.
[2017-09-19 20:00] VITALS: BP 126/61
[2017-09-19] MEDS: NEOMY SULF/BACITRAC ZN/POLY 15 GM TUBE TP SCH (20:32)
[2017-09-19] MEDS: INSULIN GLARGINE, 100 UNIT/ML CARTRIDGE SQ SCH (22:46)
[2017-09-20] MEDS: PIPERACILLIN /TAZOBACTAM 2.25 G in IV D5W 50 ML IV SCH ×2 (04:07→12:00)
[2017-09-20] MEDS: BLOOD SUGAR DIAGNOSTIC 1 EACH STRIP IN SCH ×4 (05:17→23:00)
[2017-09-20] MEDS ORDERED: VANCOMYCIN 500 MG in IV D5W 100 ML IV PRN (06:00)
--- NOTE | 2017-09-20 06:33 | NUR ---
306-2 MS/RN NOTES PPATIETN IN BED, RESPIRATIONS EVEN AND UNLABORED, ABLE TO SLEEP DURING THE NIGHT, REPOSITION FOR COMFORT, KEPT SKIN INTACT AND DRY, CALL LIGHTS WITNIN REACH, BED IN LOCK POSITION WILL CONTINUE TO MONITOR AND ENDORSE TO AM RN FOR [facility]I.
[2017-09-20] MEDS: LEVOTHYROXINE SODIUM 125 MCG TABLET PO SCH (07:30)
--- NOTE | 2017-09-20 07:55 | NUR ---
MS RN: INITIAL NOTE RECEIVED PT A/OX1-2. SPEAKING TEGALO. NO DISTRESS NOTED. NO SOB NOTED. ON 2L SATING AT 95%. NO PAIN NOTED. INCONTINENT. USES DIAPER. ON DIALYSIS. L UPPER CHEST WALL CATH IN PLACE AND PATENT. DRESSING INTACT. R AC #20 SL. SITE CLEAR AND PATENT. NO REDNESS OR BLEEDING NOTED. RESTING COMFORTABLY IN BED. CALL LIGHT WITHIN REACH.
[2017-09-20] MEDS: SEVELAMER CARBONATE 800 MG TABLET PO SCH ×3 (08:00→17:21)
[2017-09-20 08:52] VITALS: BP 153/76
[2017-09-20] MEDS: Fluoxetine 10 mg capsule PO SCH (09:00)
[2017-09-20] MEDS: CYANOCOBALAMIN 500 MCG TABLET PO SCH (09:00)
[2017-09-20] MEDS: ALLOPURINOL 100 MG TABLET PO SCH (09:00)
[2017-09-20] MEDS: AMIODARONE HCL 200 MG TABLET PO SCH (09:00)
[2017-09-20] MEDS: BRIMONIDINE TARTRATE OPHT SOLN 5 ML BOTTLE EACHEYE SCH ×2 (09:00→17:21)
[2017-09-20] MEDS: ASPIRIN EC 81 MG TABLET.DR PO SCH (09:00)
[2017-09-20] MEDS: FOLIC ACID 1 MG TABLET PO SCH (09:00)
[2017-09-20] MEDS: LACTOBACILLUS RHAMNOSUS GG 1 EACH CAP.SPRINK PO SCH ×2 (09:00→17:21)
[2017-09-20] MEDS: MEGESTROL ACETATE 40 MG TABLET GT SCH (09:00)
[2017-09-20] MEDS: HEPARIN SODIUM, PORCINE 5000 UNITS/1 ML VIAL SQ SCH ×2 (09:00→21:03)
--- NOTE | 2017-09-20 09:18 | NUR ---
PT IN AGREEMENT TO TAKE MORNING MEDICATIONS. AFTER PREPARING AND OPENING MEDS. PT REFUSED. TRIED TO HAVE ANOTHER NURSE SPEAK TO HER IN [facility], MAYLIN DISLA. PT STATED SHE DOES NOT WANT ANY MEDS. TRIED TO EXPLAIN RISKS AND BENEFITS. PT STILL REFUSED. A/OX1-2. FORGETFUL. WILL NOTIFY KAYLI LOMBARDI.
[2017-09-20] MEDS ORDERED: LIDOCAINE 1%-EPI 1:100,000 50 ML VIAL IJ ONE (11:00)
--- NOTE | 2017-09-20 12:00 | NUR ---
PT REFUSED INSULIN ADMIN. BG 196. SHE DID NOT WANT TO HAVE LUNCH. TERRI HELD DUE TO PT NOT EATING. ALL RISKS AND BENEFITS EXPLAINED.
[2017-09-20 16:01] VITALS: BP 131/66
[2017-09-20] MEDS: LATANOPROST EYE DROP 0.005% 2.5 ML BOTTLE EACHEYE SCH (17:21)
[2017-09-20] MEDS: INSULIN REGULAR, HUMAN 100 UNIT/ML 3 ML VIAL SQ PRN ×2 (17:29→22:53)
--- NOTE | 2017-09-20 18:23 | NUR ---
MS RN: CLOSING NOTE PT REFUSED MORNING AND AFTERNOON MEDS. CLICKER OPERATOR EDIN AWARE. TOOK EVENING MEDS. NO ADVERSE REACTIONS NOTED. NO SOB NOTED. NO PAIN NOTED. A/OX3-4. PER MD DEWAYNE CABALLERO TO GET CONSENT FOR L UA LINE REMOVAL DUE TO INFECTION. CONSENT GOT FROM SIMBA GUERRA SIGNED BY TWO RNS. PROCEDURE NOT DONE YET. DRESSING ON SITE INTACT. R AC #20 SL. SITE CLEAR AND PATENT. NO REDNESS OR BLEEDING NOTED. DIALYSIS DONE 09/19/17. REFUSED TO BE TURNED AND REPOSITIONED. ALL RISKS AND BENEFITS EXPLAINED. ON CONTACT ISOLATION FOR MRSA IN BLOOD. RESTING COMFORTABLY IN BED. CALL LIGHT WITHIN REACH.
--- NOTE | 2017-09-20 19:15 | NUR ---
RN OPENING NOTES PT AWAKE AND RESTING IN BED. FAMILY AT BEDSIDE. NO COMPLAINTS OF PAIN, SOB, OR DISTRESS AT THIS TIME. PT HAS A RIGHT AC #20 AND A LEFT CHEST WALL PERMACATH. SAFETY PRECAUTIONS IN PLACE BED IN LOWEST LOCKED POSITION, X2 SIDE RAILS UP. CALL LIGHT WITHIN REACH WILL CONTINUE TO MONITOR.
[2017-09-20 20:00] VITALS: BP 128/65
[2017-09-20] MEDS: NEOMY SULF/BACITRAC ZN/POLY 15 GM TUBE TP SCH (20:00)
[2017-09-20] MEDS: PIPERACILLIN /TAZOBACTAM 2.25 G in IV NS 0.9% 50 ML IV SCH (21:00)
--- NOTE | 2017-09-20 21:00 | NUR ---
RN NOTES NEOSPORIN NOT FOUND AT BEDSIDE OR PATIENTS CASSETTE. WILL FOLLOW UP WITH PHARMACY.
[2017-09-20] MEDS: INSULIN GLARGINE, 100 UNIT/ML CARTRIDGE SQ SCH (22:53)
[2017-09-21] MEDS: PIPERACILLIN /TAZOBACTAM 2.25 G in IV NS 0.9% 50 ML IV SCH ×3 (05:56→20:57)
[2017-09-21] MEDS: DEXTROSE 50%-WATER 50 ML DISP.SYRIN IV PRN (06:05)
[2017-09-21 06:25] LABS: CARBON DIOXIDE 27 mmol/L (21-32); CHLORIDE 95 mmol/L (98-107); GLUCOSE 52 mg/dL (74-106); POTASSIUM 3.8 mmol/L (3.5-5.1); SODIUM SERUM 134 mmol/L (136-145); UREA NITROGEN, BLOOD 54 mg/dL (7-18)
[2017-09-21] MEDS: BLOOD SUGAR DIAGNOSTIC 1 EACH STRIP IN SCH ×3 (06:28→17:26)
--- NOTE | 2017-09-21 06:31 | NUR ---
rn notes checked pts blood sugar at 0600. blood sugar was 54. administered dextrose 50. rechecked blood sugar 185.
--- NOTE | 2017-09-21 06:57 | NUR ---
RN CLOSING NOTES PT AWAKE AND RESTING IN BED. NO COMPLAINTS OF PAIN, SOB, OR DISTRESS OVERNIGHT. PT HAS A RIGHT AC #20 AND A LEFT CHEST WALL PERMACATH. PERMACATH WILL BE REMOVED TODAY, EVERYTHING AT BEDSIDE. SAFETY PRECAUTIONS IN PLACE BED IN LOWEST LOCKED POSITION, X2 SIDE RAILS UP. CALL LIGHT WITHIN REACH. WILL ENDORSE TO DAY SHIFT FOR CONTINUITY OF CARE.
[2017-09-21 08:00] VITALS: BP 105/58
--- NOTE | 2017-09-21 08:00 | NUR ---
MS RN AM NOTES PT SLEEPING COMFORTABLY IN BED BUT AROUSABLE. NO COMPLAINTS OF PAIN, SOB, OR DISTRESS AT THIS TIME. PT HAS A RIGHT AC #20 AND A LEFT CHEST WALL PERMACATH. STILL WITH PENDING PERMACATH REMOVAL BY DR AGUSTINA STOVALL OR KAYLI PENN.SAFETY PRECAUTIONS IN PLACE BED IN LOWEST LOCKED POSITION, X2 SIDE RAILS UP. CALL LIGHT WITHIN REACH WILL CONTINUE TO MONITOR.
[2017-09-21] MEDS: MEGESTROL ACETATE 40 MG TABLET GT SCH (09:49)
[2017-09-21] MEDS: LACTOBACILLUS RHAMNOSUS GG 1 EACH CAP.SPRINK PO SCH ×2 (09:49→17:25)
[2017-09-21] MEDS: FOLIC ACID 1 MG TABLET PO SCH (09:49)
[2017-09-21] MEDS: Fluoxetine 10 mg capsule PO SCH (09:49)
[2017-09-21] MEDS: ALLOPURINOL 100 MG TABLET PO SCH (09:49)
[2017-09-21] MEDS: AMIODARONE HCL 200 MG TABLET PO SCH (09:50)
[2017-09-21] MEDS: SEVELAMER CARBONATE 800 MG TABLET PO SCH ×3 (09:50→17:25)
[2017-09-21] MEDS: CYANOCOBALAMIN 500 MCG TABLET PO SCH (09:50)
[2017-09-21] MEDS: HEPARIN SODIUM, PORCINE 5000 UNITS/1 ML VIAL SQ SCH ×2 (09:55→20:57)
[2017-09-21] MEDS: LEVOTHYROXINE SODIUM 125 MCG TABLET PO SCH (09:56)
[2017-09-21] MEDS: ASPIRIN EC 81 MG TABLET.DR PO SCH (09:56)
[2017-09-21] MEDS: BRIMONIDINE TARTRATE OPHT SOLN 5 ML BOTTLE EACHEYE SCH ×2 (09:57→17:25)
--- NOTE | 2017-09-21 10:30 | NUR ---
PT IS HAVING HEMODIALYSIS PROCEDURE AT THIS TIME.
[2017-09-21 11:04] LABS: BASOPHILS % (AUTO) 0.1 % (0.0-2.0); EOSINOPHILS % (AUTO) 1.5 % (0.0-6.0); HEMATOCRIT 31 % (33-45); LYMPHOCYTES # (AUTO) 2.2 /CMM (0.8-4.8); LYMPHOCYTES % (AUTO) 13.1 % (20.0-44.0); MEAN CORPUSCULAR HGB CONC 32 g/dl (31.0-36.0); MEAN CORPUSCULAR VOLUME 92 fL (82-100); MONOCYTES # (AUTO) 0.9 /CMM (0.1-1.30); MONOCYTES % (AUTO) 5.2 % (2.0-12.0); NEUTROPHILS # (AUTO) 13.6 /CMM (1.8-8.9); NEUTROPHILS % (AUTO) 80.1 % (43.0-81.0); PLATELET COUNT (AUTO) 204 /CMM (150-450); RDW COEFFICIENT OF VARIATION 20.2 (11.5-15.0); RED BLOOD CELL COUNT(AUTO) 3.36 MIL/uL (4.0-5.2)
--- NOTE | 2017-09-21 12:57 | NUR ---
COMPLETED HD PROCEDURE WITH NO OUTPUT JUST PLAIN CLEANING PER HD RN,KATHIE.
--- NOTE | 2017-09-21 13:27 | NUR ---
REMOVAL OF PERMACATH PROCEDURE DONE AT BEDSIDE BY DR AGUSTINA STOVALL AND KAYLI PENN.WITH STABLE V/S.
--- NOTE | 2017-09-21 14:05 | NUR ---
COMPLETED PERMACATH REMOVAL PROCEDURE.PERMACATH TIP C/S SENT TO LAB.
--- NOTE | 2017-09-21 14:23 | NUR ---
VANCO IV POST HD HELD DUE TO VANCO LEVEL OF 22.PHARMACIST AWARE.
[2017-09-21 16:00] VITALS: BP 120/56
[2017-09-21] MEDS: LATANOPROST EYE DROP 0.005% 2.5 ML BOTTLE EACHEYE SCH (17:25)
[2017-09-21] MEDS: INSULIN REGULAR, HUMAN 100 UNIT/ML 3 ML VIAL SQ PRN (17:33)
--- NOTE | 2017-09-21 18:35 | NUR ---
PT RESTING IN BED SLEEPING BUT AROUSABLE.ATE DINNER BROUGHT BY HER GRANDSON.PT'S LCW PERMACATH SITE HAS NO S/S OF BLEEDING.DRESSING CLEAN AND DRY.DENIES ANY DISTRESS OR DISCOMFORT.CALL LIGHT PLACED WITHIN REACH.
--- NOTE | 2017-09-21 19:25 | NUR ---
MS/RN NOTES RECEIVED PT. LYING IN BED. PT. IS AWAKE, ALERT AND ORIENTED X2. BREATHING EVEN AND UNLABORED ON 2LPM O2 VIA NC. NO SOB, RESPIRATORY DISTRESS OR COMPLAINTS OF PAIN NOTED AT THIS TIME. PT. WITH RIGHT AC 20 GAUGE IV SALINE LOCK. PT. IS S/P LEFT CHEST WALL PERMACATH REMOVAL TODAY 09/21/[address]OVALL. PT. HAS LEFT CHEST WALL DRESSING PRESENT, CLEAN, DRY AND INTACT. ISOLATION PRECAUTIONS IMPLEMENTED AND IN PLACE. BED LOCKED AND IN LOWEST POSITION, SIDE RAILS UP X3, BED ALARM ON, CALL LIGHT WITHIN REACH, WILL CONTINUE TO MONITOR.
[2017-09-21 20:00] VITALS: BP 145/59
[2017-09-21] MEDS: NEOMY SULF/BACITRAC ZN/POLY 15 GM TUBE TP SCH (20:57)
[2017-09-21] MEDS: INSULIN GLARGINE, 100 UNIT/ML CARTRIDGE SQ SCH (22:24)
[2017-09-22] MEDS: BLOOD SUGAR DIAGNOSTIC 1 EACH STRIP IN SCH ×5 (00:39→23:05)
--- NOTE | 2017-09-22 03:18 | NUR ---
MS/RN NOTES GAVE REPORT AND ENDORSED PT. TO MAYLIN COHEN. PT. IS LYING IN BED RESTING. BREATHING EVEN AND UNLABORED ON 2LPM O2 VIA NC. NO SOB, RESPIRATORY DISTRESS OR COMPLAINTS OF PAIN NOTED AT THIS TIME.
--- NOTE | 2017-09-22 03:19 | NUR ---
MS RN NOTES: RECEIVED PT FROM ANOTHER RN, BOBBY KOENIG. PT IS ASLEEP AT THIS TIME. PT ON 2LPM VIA NC AND IS TOLERATING WELL. NO S/S OF DISTRESS NOTED. PT HAS IV ON R AC #20G AND IS PATENT AND INTACT. CURRENTLY S/L. CALL LIGHT WITHIN PT'S REACH. BED KEPT IN LOW, LOCKED POSITION, AND SIDE RAILS X 2UP. BED ALARM ACTIVATED. WILL CONTINUE TO MONITOR PT.
[2017-09-22] MEDS: PIPERACILLIN /TAZOBACTAM 2.25 G in IV NS 0.9% 50 ML IV SCH (04:01)
--- NOTE | 2017-09-22 06:49 | NUR ---
MS RN CLOSING NOTES: ALL NEEDS WERE ATTENDED AND ANTICIPATED FOR. PT ON 2LPM VIA NC AND IS TOLERATING WELL. PT RESTING AT THIS TIME. PT HAS IV ON R AC #20G AND IS PATENT AND INTACT. PT CURRENTLY S/L. PT HAS DRESSING PLACED OVER LEFT CHEST PT IS S/P LCW PERMACATH REMOVAL. CALL LIGHT WITHIN PT'S REACH. BED KEPT IN LOW, LOCKED POSITION, AND SIDE RAILS X 2UP. BED ALARM ACTIVATED. WILL ENDORSE TO AM NURSE FOR [facility]I.
--- NOTE | 2017-09-22 07:35 | NUR ---
RN OPENING NOTES RECEIVED PT. IN BED A&OX1-2. BREATHING UNLABORED, AND EVENLY ON OXYGEN AT 2L/MIN VIA NASAL CANNULA. NO S/S OF ACUTE DISTRESS. BED IS IN LOWEST, AND LOCKED POSITION. 2 SIDE RAILS UP, AND INSTRUCTED PT. TO USE CALL LIGHT FOR ASSISTANCE. ALL NEEDS MET. WILL CONTINUE TO ASSESS AND MONITOR.
[2017-09-22 08:00] VITALS: BP 118/53
[2017-09-22] MEDS: LEVOTHYROXINE SODIUM 125 MCG TABLET PO SCH (08:15)
[2017-09-22] MEDS: SEVELAMER CARBONATE 800 MG TABLET PO SCH ×3 (08:15→18:31)
[2017-09-22] MEDS: LACTOBACILLUS RHAMNOSUS GG 1 EACH CAP.SPRINK PO SCH ×2 (09:49→18:31)
[2017-09-22] MEDS: Fluoxetine 10 mg capsule PO SCH (09:49)
[2017-09-22] MEDS: ASPIRIN EC 81 MG TABLET.DR PO SCH (09:49)
[2017-09-22] MEDS: FOLIC ACID 1 MG TABLET PO SCH (09:49)
[2017-09-22] MEDS: ALLOPURINOL 100 MG TABLET PO SCH (09:49)
[2017-09-22] MEDS: CYANOCOBALAMIN 500 MCG TABLET PO SCH (09:49)
[2017-09-22] MEDS: MEGESTROL ACETATE 40 MG TABLET GT SCH (09:50)
[2017-09-22] MEDS: AMIODARONE HCL 200 MG TABLET PO SCH (09:50)
[2017-09-22] MEDS: HEPARIN SODIUM, PORCINE 5000 UNITS/1 ML VIAL SQ SCH (09:50)
[2017-09-22] MEDS: BRIMONIDINE TARTRATE OPHT SOLN 5 ML BOTTLE EACHEYE SCH ×2 (09:51→18:32)
[2017-09-22] MEDS: Z GUARD REMEDY 2 OZ OINT TP PRN (09:51)
--- NOTE | 2017-09-22 11:22 | NUR ---
RN NOTES PT. REFUSED TO HAVE BLOOD DRAWN FOR BLOOD CULTURES. PT. WAS EXPLAINED THE REASON FOR THE PROCEDURE, AND ASKED TO HAVE BLOOD DRAWN, PT. SAID, "THAT'S ENOUGH".
[2017-09-22] MEDS: INSULIN REGULAR, HUMAN 100 UNIT/ML 3 ML VIAL SQ PRN ×2 (12:11→23:07)
[2017-09-22 16:00] VITALS: BP 120/44
[2017-09-22] MEDS: LATANOPROST EYE DROP 0.005% 2.5 ML BOTTLE EACHEYE SCH (18:32)
--- NOTE | 2017-09-22 18:45 | NUR ---
RN NOTES PT. REFUSED INSULIN SQ.
--- NOTE | 2017-09-22 19:40 | NUR ---
MS RN NOTE RECEIVED PATIENT FROM DAY SHIFT, PATIENT IS ALERT AND ORIENTEDX1-2, NO S/S OF RESPIRATORY DISTRESS OR PAIN AT THIS TIME. IV ON RIGHT AC IS PATENT AND INTACT, SL ONLY. LEFT CHEST WALL DRESSING NOTED S/P PERMACATH REMOVAL, SCANT BLOOD DRAINAGE NOTED. SRX2, BED IN LOW POSITION, CALL LIGHT WITHIN REACH, WILL CONTINUE TO MONITOR PATIENT.
[2017-09-22 20:00] VITALS: BP 106/50
[2017-09-22] MEDS: NEOMY SULF/BACITRAC ZN/POLY 15 GM TUBE TP SCH (20:01)
--- NOTE | 2017-09-22 20:40 | NUR ---
RN CLOSING NOTES PT. IN BED A&OX1-2. BREATHING UNLABORED, AND EVENLY ON OXYGEN AT 2L/MIN VIA NASAL CANNULA. NO S/S OF ACUTE DISTRESS. BED IS IN LOWEST, AND LOCKED POSITION. 2 SIDE RAILS UP, AND INSTRUCTED PT. TO USE CALL LIGHT FOR ASSISTANCE. ALL NEEDS MET. WILL ENDORSE REPORT.
[2017-09-22] MEDS: INSULIN GLARGINE, 100 UNIT/ML CARTRIDGE SQ SCH (23:06)
[2017-09-23] MEDS: BLOOD SUGAR DIAGNOSTIC 1 EACH STRIP IN SCH ×3 (05:23→17:59)
--- NOTE | 2017-09-23 06:41 | NUR ---
MS RN NOTE PATIENT IS RESTING IN BED COMFORTABLY, NO ACUTE DISTRESS NOTED THROUGHOUT THE SHIFT. ALL DUE MEDS GIVEN, MORNING CARE RENDERED, CHANGED LEFT CW DRESSING. WILL ENDORSE TO DAY SHIFT NURSE FOR [facility].
[2017-09-23 06:45] LABS: BASOPHILS % (AUTO) 0.1 % (0.0-2.0); EOSINOPHILS % (AUTO) 2.3 % (0.0-6.0); HEMATOCRIT 29 % (33-45); HEMOGLOBIN 9.2 g/dL (11.5-14.8); LYMPHOCYTES # (AUTO) 1.6 /CMM (0.8-4.8); LYMPHOCYTES % (AUTO) 9.2 % (20.0-44.0); MEAN CORPUSCULAR HGB CONC 32 g/dl (31.0-36.0); MEAN CORPUSCULAR VOLUME 92 fL (82-100); MONOCYTES # (AUTO) 1.3 /CMM (0.1-1.30); MONOCYTES % (AUTO) 7.8 % (2.0-12.0); NEUTROPHILS # (AUTO) 13.8 /CMM (1.8-8.9); NEUTROPHILS % (AUTO) 80.6 % (43.0-81.0); PLATELET COUNT (AUTO) 226 /CMM (150-450); RDW COEFFICIENT OF VARIATION 20.4 (11.5-15.0); RED BLOOD CELL COUNT(AUTO) 3.13 MIL/uL (4.0-5.2); WHITE BLOOD COUNT (AUTO) 17.1 K/uL (4.3-11.0)
[2017-09-23 06:51] LABS: CALCIUM, SERUM 8.7 mg/dL (8.5-10.1); CARBON DIOXIDE 30 mmol/L (21-32); CHLORIDE 96 mmol/L (98-107); CREATININE 3.1 mg/dL (0.6-1.3); GLUCOSE 79 mg/dL (74-106); MAGNESIUM 2.4 mg/dL (1.8-2.4); PHOSPHORUS 4.6 mg/dL (2.5-4.9); POTASSIUM 4.1 mmol/L (3.5-5.1); SODIUM SERUM 133 mmol/L (136-145); UREA NITROGEN, BLOOD 35 mg/dL (7-18)
--- NOTE | 2017-09-23 07:20 | NUR ---
RN OPENING NOTES RECEIVED PT. IN BED A&OX1-2. BREATHING UNLABORED, AND EVENLY ON OXYGEN AT 2L/MIN VIA NASAL CANNULA. NO S/S OF ACUTE DISTRESS. BED IS IN LOWEST, AND LOCKED POSITION. 2 SIDE RAILS UP, AND CALL LIGHT WITHIN REACH. ALL NEEDS MET. WILL CONTINUE TO ASSESS AND MONITOR.
[2017-09-23 08:00] VITALS: BP 146/58
[2017-09-23] MEDS: LACTOBACILLUS RHAMNOSUS GG 1 EACH CAP.SPRINK PO SCH ×2 (10:11→17:55)
[2017-09-23] MEDS: ALLOPURINOL 100 MG TABLET PO SCH (10:12)
[2017-09-23] MEDS: LEVOTHYROXINE SODIUM 125 MCG TABLET PO SCH (10:12)
[2017-09-23] MEDS: FOLIC ACID 1 MG TABLET PO SCH ×2 (10:12→10:40)
[2017-09-23] MEDS: ASPIRIN EC 81 MG TABLET.DR PO SCH (10:12)
[2017-09-23] MEDS: Fluoxetine 10 mg capsule PO SCH (10:12)
[2017-09-23] MEDS: MEGESTROL ACETATE 40 MG TABLET GT SCH (10:12)
[2017-09-23] MEDS: CYANOCOBALAMIN 500 MCG TABLET PO SCH ×2 (10:12→10:40)
[2017-09-23] MEDS: AMIODARONE HCL 200 MG TABLET PO SCH (10:13)
[2017-09-23] MEDS: SEVELAMER CARBONATE 800 MG TABLET PO SCH ×3 (10:13→17:55)
[2017-09-23] MEDS: BRIMONIDINE TARTRATE OPHT SOLN 5 ML BOTTLE EACHEYE SCH ×2 (10:14→17:56)
[2017-09-23 16:00] VITALS: BP 125/55
[2017-09-23] MEDS: LATANOPROST EYE DROP 0.005% 2.5 ML BOTTLE EACHEYE SCH (17:56)
[2017-09-23] MEDS: NEOMY SULF/BACITRAC ZN/POLY 15 GM TUBE TP SCH (17:56)
[2017-09-23] MEDS: INSULIN REGULAR, HUMAN 100 UNIT/ML 3 ML VIAL SQ PRN (18:05)
--- NOTE | 2017-09-23 19:04 | NUR ---
RN CLOSING NOTES PT. IS IN BED A&OX1-2. BREATHING UNLABORED, AND EVENLY ON OXYGEN AT 2L/MIN VIA NASAL CANNULA. NO S/S OF ACUTE DISTRESS. BED IS IN LOWEST, AND LOCKED POSITION. 2 SIDE RAILS UP, AND CALL LIGHT WITHIN REACH. ALL NEEDS MET. WILL ENDORSE REPORT TO NURSE.
--- NOTE | 2017-09-23 19:30 | NUR ---
RN NOTES RECEIVED PT SLEEPING BUT AROUSABLE, A/OX2, TAGALOG AND HUNGARIAN SPEAKING, DENIES PAIN, NO SOB, CALL LIGHT WITHIN REACH, [id number], CONTINUE TO MONITOR
[2017-09-23 20:00] VITALS: BP 116/60
[2017-09-23] MEDS: INSULIN GLARGINE, 100 UNIT/ML CARTRIDGE SQ SCH (22:08)
--- NOTE | 2017-09-24 | NUR ---
RN NOTES BLOOD [id number]-[id number], NO COVERAGE WAS GIVEN, PT REFUSED TO EAT
[2017-09-24] MEDS: BLOOD SUGAR DIAGNOSTIC 1 EACH STRIP IN SCH ×5 (00:10→23:55)
[2017-09-24 06:54] LABS: BASOPHILS % (AUTO) 0.1 % (0.0-2.0); EOSINOPHILS % (AUTO) 1.9 % (0.0-6.0); HEMATOCRIT 30 % (33-45); HEMOGLOBIN 9.6 g/dL (11.5-14.8); LYMPHOCYTES # (AUTO) 1.5 /CMM (0.8-4.8); LYMPHOCYTES % (AUTO) 9.7 % (20.0-44.0); MEAN CORPUSCULAR HGB CONC 33 g/dl (31.0-36.0); MEAN CORPUSCULAR VOLUME 92 fL (82-100); MONOCYTES # (AUTO) 1.2 /CMM (0.1-1.30); NEUTROPHILS # (AUTO) 12.5 /CMM (1.8-8.9); NEUTROPHILS % (AUTO) 80.3 % (43.0-81.0); PLATELET COUNT (AUTO) 263 /CMM (150-450); RDW COEFFICIENT OF VARIATION 20.1 (11.5-15.0); RED BLOOD CELL COUNT(AUTO) 3.23 MIL/uL (4.0-5.2); WHITE BLOOD COUNT (AUTO) 15.6 K/uL (4.3-11.0)
--- NOTE | 2017-09-24 07:06 | NUR ---
RN NOTES AWAKE, MORNING CARE RENDERED, DENIES PAIN, NO SOB, CALL LIGHT WITHIN REQCH, [id number], PT. NEEDS ATTENDED
[2017-09-24 07:10] LABS: CALCIUM, SERUM 8.5 mg/dL (8.5-10.1); CARBON DIOXIDE 27 mmol/L (21-32); CHLORIDE 97 mmol/L (98-107); CREATININE 3.3 mg/dL (0.6-1.3); GLUCOSE 115 mg/dL (74-106); MAGNESIUM 2.5 mg/dL (1.8-2.4); PHOSPHORUS 4.8 mg/dL (2.5-4.9); POTASSIUM 4.2 mmol/L (3.5-5.1); SODIUM SERUM 133 mmol/L (136-145); UREA NITROGEN, BLOOD 40 mg/dL (7-18); VANCOMYCIN,TROUGH 12 ug/ml (12-20)
[2017-09-24 08:00] VITALS: BP 149/56
[2017-09-24] MEDS: ASPIRIN EC 81 MG TABLET.DR PO SCH (08:12)
[2017-09-24] MEDS: MEGESTROL ACETATE 40 MG TABLET GT SCH (08:12)
[2017-09-24] MEDS: LACTOBACILLUS RHAMNOSUS GG 1 EACH CAP.SPRINK PO SCH ×2 (08:12→16:55)
[2017-09-24] MEDS: ALLOPURINOL 100 MG TABLET PO SCH (08:12)
[2017-09-24] MEDS: Fluoxetine 10 mg capsule PO SCH (08:12)
[2017-09-24] MEDS: CYANOCOBALAMIN 500 MCG TABLET PO SCH (08:12)
[2017-09-24] MEDS: SEVELAMER CARBONATE 800 MG TABLET PO SCH ×3 (08:12→17:32)
[2017-09-24] MEDS: AMIODARONE HCL 200 MG TABLET PO SCH (08:13)
[2017-09-24] MEDS: LEVOTHYROXINE SODIUM 125 MCG TABLET PO SCH (08:13)
--- NOTE | 2017-09-24 08:15 | NUR ---
MS RN NOTES A/O X1, FOLLOW SIMPLE COMMAND. OXYGEN AT 2L VIA NC, NO SOB. FAIR APPETITE, DUE MEDS GIVEN. LEFT UPPER CHEST DRESSING INTACT, HD CATH PREVIOUS SITE, DENIES PAIN. ISOLATION PRECAUTION MRSA BLOOD. SAFETY PRECAUTION MAINTAIN. WILL CONT TO MONITOR.
[2017-09-24] MEDS: BRIMONIDINE TARTRATE OPHT SOLN 5 ML BOTTLE EACHEYE SCH ×2 (09:26→16:55)
[2017-09-24] MEDS: INSULIN REGULAR, HUMAN 100 UNIT/ML 3 ML VIAL SQ PRN ×3 (12:21→23:58)
[2017-09-24] MEDS ORDERED: VANCOMYCIN 500 MG in IV D5W 100 ML IV ONE (14:00)
[2017-09-24 16:00] VITALS: BP 137/59
[2017-09-24 16:45] VITALS: BP 137/59
[2017-09-24] MEDS: LATANOPROST EYE DROP 0.005% 2.5 ML BOTTLE EACHEYE SCH (17:32)
--- NOTE | 2017-09-24 18:28 | NUR ---
MS RN CLOSING NOTES A/O X1, EPISODE OF NON COMPLIANT WITH CARE, REFUSING TO BE REPOSITIONED AND EAT HER MEALS. DENIES PAIN, REPEAT BLOOD CULTURE PENDING RESULT, SEEN BY DR. THOMAS TODAY, PER MD WHEN BLOOD CULTURE IS NEGATIVE AND WBC IMPROVED, HD CATH WILL BE PLACED. HOLDING DIALYSIS AT THIS TIME, PATIENT HAS NO HD CATH. CONTACT ISOLATION MRSA BLOOD OBSERVED. SAFETY PRECAUTION MAINTAIN. WILL ENDORSE TO ONCOMING RN.
--- NOTE | 2017-09-24 19:30 | NUR ---
MS RN OPENING NOTES: PATIENT IN BED, AOX2, TAGALOG SPEAKING, ON O2 VIA NC AT 2 LPM, BREATHING EVEN AND UNLABORED, BREATH SOUNDS CLEAR TO AUSCULTATION, BUT SLIGHTLY DIMINISHED AT BASES. NOTED THAT VERBAL RESPONSE IS LIMITED TO SIMPLE "OK" AND "NO". DENIES PAIN, APPEARS CALM AND IN NO DISTRESS. FAMILY AT BEDSIDE. PER SON, THEY HAVE JUST FINISHED FEEDING PATIENT WITH DINNER. PIV OVER RAC G 20 INTACT AND PATENT TO FLUSH. NOTED MARELY UPPER ARMS WITH NON PITTING EDEMA, MORE ON THE LEFT THAN ON RIGHT. PATIENT HAS CLEAN AND INTACT DRESSING OVER LCW. PROVIDED FOR COMFORT AND SAFETY. BED IN LOWEST AND LOCKED POSITION, SIDERAILS UP X3, CALL LIGHT WITHIN REACH. WILL CONT TO MONITOR.
--- NOTE | 2017-09-24 19:30 | NUR ---
RN NOTES: BLOOD SUGAR CHECKED AT 259 MG/DL,ADMINISTERED 30 UNITS LANTUS SQ AND GAVE LIGHT SNACK. WILL CONT TO MONITOR.
[2017-09-24 20:00] VITALS: BP 122/57
[2017-09-24] MEDS: NEOMY SULF/BACITRAC ZN/POLY 15 GM TUBE TP SCH (21:11)
[2017-09-24] MEDS: INSULIN GLARGINE, 100 UNIT/ML CARTRIDGE SQ SCH (21:47)
--- NOTE | 2017-09-25 | NUR ---
RN NOTES: BLOOD SUGAR CHECKED AT 266 MG/DL, ADMINISTERED 12 UNITS REGULAR INSULIN, THEN GAVE LIGHT SNACK AGAIN. PATIETN FULLY AWAKE AT THIS TIME.
--- NOTE | 2017-09-25 05:14 | NUR ---
RN NOTES: OFFERED BED BATH AND LINEN CHANGE TO PATIENT, BUT PATIENT KEPT REFUSING.
--- NOTE | 2017-09-25 05:20 | NUR ---
RN NOTES: BLOOD SUGAR CHECKED AT 89 MG/DL. GAVE LIGHT SNACK AT THIS TIME.
[2017-09-25] MEDS: BLOOD SUGAR DIAGNOSTIC 1 EACH STRIP IN SCH ×4 (05:24→23:13)
[2017-09-25] MEDS: LEVOTHYROXINE SODIUM 125 MCG TABLET PO SCH (06:31)
--- NOTE | 2017-09-25 06:43 | NUR ---
MS RN CLOSING NOTES: PATIENT IN BED, AOX2, ON O2 AT 2 LPM VIA NC, BREATHING EVEN AND UNLABORED. PATIENT APPEARS CALM AND IN NO DISTRESS. DECLINED MORNING CARE AND BED BATH. APPEARS WITHDRAWN. DUE MEDS GIVEN. PROVIDED FOR COMFORT AND SAFETY. BED IN LOWEST AND LOCKED POSITION, SIDERAILS UP X3, CALL LIGHT WITHIN REACH. BED ALARMS ON. WILL ENDORSE TO AM RN FOR NHI.
[2017-09-25 06:48] LABS: BASOPHILS % (AUTO) 0.1 % (0.0-2.0); EOSINOPHILS % (AUTO) 2.4 % (0.0-6.0); HEMATOCRIT 28 % (33-45); HEMOGLOBIN 9.2 g/dL (11.5-14.8); LYMPHOCYTES # (AUTO) 1.3 /CMM (0.8-4.8); LYMPHOCYTES % (AUTO) 7.9 % (20.0-44.0); MEAN CORPUSCULAR HGB CONC 33 g/dl (31.0-36.0); MEAN CORPUSCULAR VOLUME 92 fL (82-100); MONOCYTES # (AUTO) 1.2 /CMM (0.1-1.30); MONOCYTES % (AUTO) 7.5 % (2.0-12.0); NEUTROPHILS # (AUTO) 13.5 /CMM (1.8-8.9); NEUTROPHILS % (AUTO) 82.1 % (43.0-81.0); PLATELET COUNT (AUTO) 300 /CMM (150-450); RDW COEFFICIENT OF VARIATION 20.4 (11.5-15.0); RED BLOOD CELL COUNT(AUTO) 3.08 MIL/uL (4.0-5.2); WHITE BLOOD COUNT (AUTO) 16.5 K/uL (4.3-11.0)
[2017-09-25 06:53] LABS: CALCIUM, SERUM 8.7 mg/dL (8.5-10.1); CARBON DIOXIDE 26 mmol/L (21-32); CHLORIDE 99 mmol/L (98-107); CREATININE 3.3 mg/dL (0.6-1.3); GLUCOSE 79 mg/dL (74-106); MAGNESIUM 2.6 mg/dL (1.8-2.4); PHOSPHORUS 4.7 mg/dL (2.5-4.9); POTASSIUM 3.8 mmol/L (3.5-5.1); SODIUM SERUM 135 mmol/L (136-145); UREA NITROGEN, BLOOD 43 mg/dL (7-18)
--- NOTE | 2017-09-25 07:15 | NUR ---
MS RN NOTES A/O X1, DELAYED SPEECH. TOLERATING ROOM AIR, NO SOB. LEFT UPPER CHEST DRESSING INTACT, HD CATH PREVIOUS SITE, DENIES PAIN. ISOLATION PRECAUTION MRSA BLOOD. SAFETY PRECAUTION MAINTAIN. WILL CONT TO MONITOR.
[2017-09-25 08:00] VITALS: BP 149/60
--- NOTE | 2017-09-25 08:25 | NUR ---
REPORT GIVEN TO MAYLIN IBARRA FOR CONTINUITY OF CARE.
--- NOTE | 2017-09-25 08:30 | NUR ---
ms rn received on bed, awake,alert,oriented x2,not in any form of distress, respirations even and unlabored,no sob noted,lungs are clear,abdomen soft,positive bowel sounds, denies pain at this time,will monitor patient's condition.
--- NOTE | 2017-09-25 09:55 | NUR ---
ms paiz breakfast served,due meds given,toleratd well.
[2017-09-25] MEDS: SEVELAMER CARBONATE 800 MG TABLET PO SCH ×3 (10:05→17:51)
[2017-09-25] MEDS: AMIODARONE HCL 200 MG TABLET PO SCH (10:07)
[2017-09-25] MEDS: ALLOPURINOL 100 MG TABLET PO SCH (10:07)
[2017-09-25] MEDS: ASPIRIN EC 81 MG TABLET.DR PO SCH (10:07)
[2017-09-25] MEDS: MEGESTROL ACETATE 40 MG TABLET GT SCH (10:07)
[2017-09-25] MEDS: Fluoxetine 10 mg capsule PO SCH (10:08)
[2017-09-25] MEDS: FOLIC ACID 1 MG TABLET PO SCH (10:08)
[2017-09-25] MEDS: LACTOBACILLUS RHAMNOSUS GG 1 EACH CAP.SPRINK PO SCH ×2 (10:08→17:51)
[2017-09-25] MEDS: CYANOCOBALAMIN 500 MCG TABLET PO SCH (10:08)
[2017-09-25] MEDS: BRIMONIDINE TARTRATE OPHT SOLN 5 ML BOTTLE EACHEYE SCH ×2 (10:11→17:53)
--- NOTE | 2017-09-25 10:55 | NUR ---
ms pazi was seen by tere w/ orders made and carried out.
[2017-09-25] MEDS: INSULIN REGULAR, HUMAN 100 UNIT/ML 3 ML VIAL SQ PRN ×3 (12:48→23:09)
[2017-09-25 16:00] VITALS: BP 130/61
[2017-09-25] MEDS: LATANOPROST EYE DROP 0.005% 2.5 ML BOTTLE EACHEYE SCH (17:53)
--- NOTE | 2017-09-25 18:40 | NUR ---
ms rn on bed, no change of condition.will endorsed to night monitor for continuity of care.
--- NOTE | 2017-09-25 19:40 | NUR ---
MSRN FULLY AWAKE, RESTING QUIETLY. NO VERBAL RESPONSE WHEN ASKED. REFUSED TO BE REPOSITIONED AT THIS TIME. KEPT COMFORTABLE. TO CONTNUE
[2017-09-25 20:00] VITALS: BP 131/55
[2017-09-25] MEDS: NEOMY SULF/BACITRAC ZN/POLY 15 GM TUBE TP SCH (21:24)
[2017-09-25 22:00] VITALS: BP 131/55
--- NOTE | 2017-09-25 22:00 | NUR ---
MSRN BS WAS 173 COVERED WITH 4 UNITS OF REGULAR INSULIN. OTHER DUE MEDS ADMINISTERED. NO VERBAL, ONLY FACIAL EXPRESSIONS. HS CARE DONE.NO SOB. CLOSELY WATCHED. ISOLATION FOR MRSA BLOOD PRECAUTIONARY MEASURES OBSERVED.
[2017-09-25] MEDS: INSULIN GLARGINE, 100 UNIT/ML CARTRIDGE SQ SCH (23:08)
--- NOTE | 2017-09-26 02:44 | NUR ---
MSRN SLEEPING APPEARS COMFORTABLE.
--- NOTE | 2017-09-26 06:30 | NUR ---
MSRN BS 101. NO NEEDS MADE.
[2017-09-26] MEDS: BLOOD SUGAR DIAGNOSTIC 1 EACH STRIP IN SCH ×3 (06:59→17:26)
--- NOTE | 2017-09-26 07:10 | NUR ---
MS/RN OPENING NOTE PATIENT ALERT AND ORIENTED X2. DENIES SOB. RESPIRATION REGULAR AND UNLABORED. DENIES PAIN AT THIS TIME. RIGHT AC G 20 PATENT AND SALINE LOCKED. BED LOW AND LOCKED. SIDE RAILS UP X3. CALL LIGHT WITHIN REACH. WILL CONTINUE TO MONITOR.
[2017-09-26 07:31] LABS: CALCIUM, SERUM 8.7 mg/dL (8.5-10.1); CARBON DIOXIDE 25 mmol/L (21-32); CHLORIDE 100 mmol/L (98-107); CREATININE 3.5 mg/dL (0.6-1.3); GLUCOSE 92 mg/dL (74-106); SODIUM SERUM 135 mmol/L (136-145); UREA NITROGEN, BLOOD 47 mg/dL (7-18)
[2017-09-26 07:41] LABS: EOSINOPHILS % (AUTO) 2.5 % (0.0-6.0); HEMATOCRIT 28 % (33-45); HEMOGLOBIN 9.3 g/dL (11.5-14.8); LYMPHOCYTES # (AUTO) 1.5 /CMM (0.8-4.8); LYMPHOCYTES % (AUTO) 9.1 % (20.0-44.0); MEAN CORPUSCULAR HGB CONC 34 g/dl (31.0-36.0); MEAN CORPUSCULAR VOLUME 90 fL (82-100); MONOCYTES # (AUTO) 1.4 /CMM (0.1-1.30); MONOCYTES % (AUTO) 8.1 % (2.0-12.0); NEUTROPHILS # (AUTO) 13.7 /CMM (1.8-8.9); NEUTROPHILS % (AUTO) 80.3 % (43.0-81.0); PLATELET COUNT (AUTO) 328 /CMM (150-450); RDW COEFFICIENT OF VARIATION 18.9 (11.5-15.0); RED BLOOD CELL COUNT(AUTO) 3.06 MIL/uL (4.0-5.2)
[2017-09-26 08:00] VITALS: BP 147/58
[2017-09-26 08:53] LABS: LYMPHOCYTES % (MANUAL) 7 % (16-48); MONOCYTES % (MANUAL) 5 % (0-11.0); NEUTROPHILS % (MANUAL) 85 (42-76)
[2017-09-26 08:54] LABS: EOSINOPHILS % (MANUAL) 3 % (0-4)
[2017-09-26] MEDS: FOLIC ACID 1 MG TABLET PO SCH (09:08)
[2017-09-26] MEDS: SEVELAMER CARBONATE 800 MG TABLET PO SCH ×3 (09:08→17:26)
[2017-09-26] MEDS: LEVOTHYROXINE SODIUM 125 MCG TABLET PO SCH (09:08)
[2017-09-26] MEDS: MEGESTROL ACETATE 40 MG TABLET GT SCH (09:08)
[2017-09-26] MEDS: Fluoxetine 10 mg capsule PO SCH (09:08)
[2017-09-26] MEDS: CYANOCOBALAMIN 500 MCG TABLET PO SCH (09:08)
[2017-09-26] MEDS: ALLOPURINOL 100 MG TABLET PO SCH (09:08)
[2017-09-26] MEDS: ASPIRIN EC 81 MG TABLET.DR PO SCH (09:08)
[2017-09-26] MEDS: LACTOBACILLUS RHAMNOSUS GG 1 EACH CAP.SPRINK PO SCH ×2 (09:08→17:26)
[2017-09-26] MEDS: AMIODARONE HCL 200 MG TABLET PO SCH (09:09)
[2017-09-26] MEDS: BRIMONIDINE TARTRATE OPHT SOLN 5 ML BOTTLE EACHEYE SCH ×2 (09:15→17:27)
[2017-09-26] MEDS: INSULIN REGULAR, HUMAN 100 UNIT/ML 3 ML VIAL SQ PRN ×2 (12:16→17:30)
[2017-09-26] MEDS ORDERED: VANCOMYCIN 1 GM in IV D5W 250 ML IV ONE (15:00)
[2017-09-26 16:00] VITALS: BP 136/60
[2017-09-26] MEDS: LATANOPROST EYE DROP 0.005% 2.5 ML BOTTLE EACHEYE SCH (17:26)
--- NOTE | 2017-09-26 18:36 | NUR ---
MS/RN CLOSING NOTE PATIENT ALERT AND ORIENTED X2. DENIES SOB. RESPIRATION REGULAR AND UNLABORED. DENIES PAIN AT THIS TIME. RAC G 24 PATENT AND SALINE LOCKED. BED LOW AND LOCKED. SIDE RAILS UP X3. CALL LIGHT WITHIN REACH. WILL ENDORSE TO BUTTON INSPECTOR.
--- NOTE | 2017-09-26 19:18 | NUR ---
MS RN NOTES RECEIVED PT IN BED, RESTING COMFORTABLY AT THIS TIME, AROUSES EASILY, VERBALLY RESPONSIVE. A/O X 2. SON AT BED SIDE. IV SITE ON RIGHT HAND AND RAC INTACT AND PATENT, NO S/S OF INFILTRATION NOTED. NO C/O PAIN OR DISCOMFORT AT THIS TIME. NO S/S OF HYPO/ HYPERGLYCEMIA NOTED. SAFETY PRECAUTIONS OBSERVED. CALL LIGHT WITHIN REACH. ALL NEEDS ATTENDED AT THIS TIME. WILL CONTINUE TO MONITOR.
[2017-09-26 20:00] VITALS: BP 142/66
[2017-09-26] MEDS: NEOMY SULF/BACITRAC ZN/POLY 15 GM TUBE TP SCH (20:35)
[2017-09-26] MEDS: INSULIN GLARGINE, 100 UNIT/ML CARTRIDGE SQ SCH (22:00)
--- NOTE | 2017-09-26 22:09 | NUR ---
PT'S BS : 131 AT THIS TIME, LANTUS 30 UNITS HELD , PT ON NPO AFTER MIDNIGHT FOR PERMACATH PLACEMENT TOMORROW, PT HAS LOW PO INTAKE PER DAYSHIFT RN, OFFERED SNACK TO THE PT AND INFORMED HER THAT SHE'LL BE ON NPO AFTER MIDNIGHT. PT REFUSED, RISK AND BENEFITS EXPLAINED. PT STILL REFUSED. NO S/S OF HYPO/ HYPERGLYCEMIA AT THIS TIME. CALL LIGHT WITHIN REACH. WILL CONT TO MONITOR.
--- NOTE | 2017-09-27 00:51 | NUR ---
PT REFUSED BS CHECK AT THIS TIME, RISK AND BENEFITS EXPLAINED BUT PT STILL REFUSED X 3, WITNESSED BY MAYLIN YUN. PT ON NPO STARTING 12 MIDNIGHT. NO S/S OF HYPO/ HYPERGLYCEMIA NOTED. WILL CONT TO MONITOR.
[2017-09-27] MEDS: BLOOD SUGAR DIAGNOSTIC 1 EACH STRIP IN SCH ×5 (05:59→23:02)
--- NOTE | 2017-09-27 06:31 | NUR ---
MS RN NOTES PT IN BED, RESTING COMFORTABLY AT THIS TIME, AROUSES EASILY, VERBALLY RESPONSIVE. A/O X 2. IV SITE ON RIGHT HAND AND RAC INTACT AND PATENT, NO S/S OF INFILTRATION NOTED. NO C/O PAIN OR DISCOMFORT AT THIS TIME. NO S/S OF HYPO/ HYPERGLYCEMIA NOTED. LATEST BS : 110. PT ON NPO SINCE MIDNIGHT FOR PERMA CATH PLACEMENT. SAFETY PRECAUTIONS OBSERVED. CALL LIGHT WITHIN REACH. ALL NEEDS ATTENDED AND MET. WILL ENDORSE TO NEXT SHIFT FOR NHI.
[2017-09-27] MEDS: LEVOTHYROXINE SODIUM 125 MCG TABLET PO SCH (07:30)
--- NOTE | 2017-09-27 07:37 | NUR ---
RN MS NOTES PT IN BED, AWAKE, ALERT AND ORIENTED, NO COMPLAINT OF PAIN, BREATHING PATTERN NORMAL AND NOT LABORED, CALL LIGHT WITHIN REACH, ISOLATION PRECAUTIONS MAINTAINED, KEPT COMFORTABLE IN BED.
[2017-09-27 08:00] VITALS: BP 136/63
[2017-09-27] MEDS: SEVELAMER CARBONATE 800 MG TABLET PO SCH ×3 (08:00→17:40)
[2017-09-27] MEDS: LACTOBACILLUS RHAMNOSUS GG 1 EACH CAP.SPRINK PO SCH ×2 (09:00→17:31)
[2017-09-27] MEDS: MEGESTROL ACETATE 40 MG TABLET GT SCH (09:00)
[2017-09-27] MEDS: CYANOCOBALAMIN 500 MCG TABLET PO SCH (09:00)
[2017-09-27] MEDS: Fluoxetine 10 mg capsule PO SCH (09:00)
[2017-09-27] MEDS: AMIODARONE HCL 200 MG TABLET PO SCH (09:00)
[2017-09-27] MEDS: ASPIRIN EC 81 MG TABLET.DR PO SCH (09:00)
[2017-09-27] MEDS: ALLOPURINOL 100 MG TABLET PO SCH (09:00)
[2017-09-27] MEDS: FOLIC ACID 1 MG TABLET PO SCH (09:00)
[2017-09-27] MEDS: BRIMONIDINE TARTRATE OPHT SOLN 5 ML BOTTLE EACHEYE SCH ×2 (10:53→17:34)
--- NOTE | 2017-09-27 11:30 | NUR ---
RN MS NOTES PT IN BED, ASLEEP, EASY TO AROUSE, ALERT AND ORIENTED, NOT IN DISTRESS, BS CHECKED, NO S/S OF HYPOGLYCEMIA OR HYPERGLYCEMIA NOTED, GRANDSON AT BEDSIDE, KEPT WARM AND COMFORTABLE.
[2017-09-27 13:43] LABS: CARBON DIOXIDE 23 mmol/L (21-32); CHLORIDE 101 mmol/L (98-107); CREATININE 3.4 mg/dL (0.6-1.3); GLUCOSE 102 mg/dL (74-106); POTASSIUM 4.7 mmol/L (3.5-5.1); SODIUM SERUM 135 mmol/L (136-145); UREA NITROGEN, BLOOD 44 mg/dL (7-18)
[2017-09-27] MEDS ORDERED: ANESTHESIA TRAY IN PYXIS 1 EA TRAY MC ONE (15:11)
[2017-09-27] MEDS ORDERED: HEPARIN SODIUM, PORCINE 1,000 UNIT/ML VIAL ONE (15:12)
[2017-09-27] MEDS ORDERED: LIDOCAINE 1% INJ 50 ML MDV IJ ONE (15:12)
--- NOTE | 2017-09-27 15:24 | NUR ---
RN MS NOTES PT IN BED, AWAKE, NOT IN PAIN OR DISTRESS, PT PICKED UP BY O.R. STAFF FOR PERMACATH PLACEMENT VIA BED, ACCOMPANIED BY GRANDSIMBA, LEFT IN STABLE CONDITION.
[2017-09-27] MEDS ORDERED: VANCOMYCIN 1 GM in IV D5W 250 ML IV ONE (16:00)
[2017-09-27 17:10] VITALS: BP 143/42
--- NOTE | 2017-09-27 17:19 | NUR ---
RN MS NOTES RECEIVED PT FROM O.R. STAFF, S/P PERMACATH PLACEMENT, PT IS AWAKE, ALERT AND ORIENTED, NO COMPLAINT OF PAIN, NOT IN DISTRESS, VITAL SIGNS STABLE, TAKEN AND RECORDED, POST-OP ORDERS NOTED FROM DR. TEJADA, NOTED AND CARRIED OUT, WITH NEW PERMACATH AT RIGHT UPPER CHEST, NO BLEEDING NOTED, PT ALSO HAS A NEW IV SITE AT LEFT LOWER LEG, INSERTED AT O.R.
[2017-09-27] MEDS: LATANOPROST EYE DROP 0.005% 2.5 ML BOTTLE EACHEYE SCH (17:34)
--- NOTE | 2017-09-27 19:13 | NUR ---
RN NOTES PT IN BED, AWAKE, ALERT AND ORIENTED, NO COMPLAINT OF PAIN, MIDLINE INSERTION ONGOING, PICC LINE ORIGINALLY ORDERED, CONSENT GIVEN BY SIMBA GUERRA OVER THE PHONE, CO-SIGNED WITH MAYLIN IBARRA, CHINO SMITH UNABLE TO GET PAST TROUGH THE OLD AV SHUNT AT LEFT UPPER ARM, DR. ADKINS INFORMED, AWARE THAT PT WILL HAVE AT LEAST 6 WEEKS OF IV ATB, PER DR LUCILLE BARRAZA TO DO MIDLINE INSTEAD, PER DIALYSIS NURSE HA, PT WILL HAVE DIALYSIS TOMORROW INSTEAD, 'S AWARE, PER PHARMACIST KONSTANTIN, CHRISTI TO GIVE VANCO IV FOR NOW, WILL DRAW TROUGH IN AM, PT AND FAMILY INFORMED, PT TOLERATED PROCEDURE WELL, ALL NEEDS ATTENDED.
--- NOTE | 2017-09-27 19:30 | NUR ---
MS RN NOTES RECEIVED PT IN BED, AWAKE, VERBALLY RESPONSIVE. A/O X 2. GRANDSON AT BED SIDE. AMBIKA MIDLINE, INTACT AND PATENT, NO S/S OF INFILTRATION NOTED, WITH GOOD VENOUS RETURN. RCW PERMACATH WITH CLEAN AND INTACT DRESSING. NO BLEEDING NOTED AT THIS TIME. NO C/O PAIN OR DISCOMFORT AT THIS TIME. NO S/S OF HYPO/ HYPERGLYCEMIA NOTED. SAFETY PRECAUTIONS OBSERVED. CALL LIGHT WITHIN REACH. ALL NEEDS ATTENDED AT THIS TIME. WILL CONTINUE TO MONITOR.
[2017-09-27] MEDS: NEOMY SULF/BACITRAC ZN/POLY 15 GM TUBE TP SCH (19:51)
[2017-09-27 20:00] VITALS: BP 155/77
--- NOTE | 2017-09-27 23:00 | NUR ---
iv line on left lower leg removed, pressure applied , no bleeding noted. pt has es midline, with good venous return.
[2017-09-27] MEDS: INSULIN GLARGINE, 100 UNIT/ML CARTRIDGE SQ SCH (23:11)
[2017-09-27] MEDS: INSULIN REGULAR, HUMAN 100 UNIT/ML 3 ML VIAL SQ PRN (23:15)
--- NOTE | 2017-09-28 03:30 | NUR ---
PT ASLEEP AT THIS TIME, AROUSES EASILY. VERBALLY RESPONSIVE. NO DISTRESS, NO SOB AT THIS TIME. NO S/S OF HYPO/ HYPERGLYCEMIA NOTED. SAFETY PRECAUTION OBSERVED. CALL LIGHT WITHIN REACH. WILL CONT TO MONITOR.
[2017-09-28] MEDS: BLOOD SUGAR DIAGNOSTIC 1 EACH STRIP IN SCH ×4 (05:35→23:14)
[2017-09-28] MEDS: INSULIN REGULAR, HUMAN 100 UNIT/ML 3 ML VIAL SQ PRN ×3 (05:39→23:21)
--- NOTE | 2017-09-28 05:40 | NUR ---
pt's bs : 151 at this time, insulin ss given . pt a/o x 2, verbally responsive. no s/s of hypo/ hyperglycemia noted. will cont to monitor.
--- NOTE | 2017-09-28 06:29 | NUR ---
MS RN NOTES PT IN BED, RESTING COMFORTABLY AT THIS TIME, AROUSES EASILY, VERBALLY RESPONSIVE. A/O X 2. AMBIKA MIDLINE, INTACT AND PATENT, NO S/S OF INFILTRATION NOTED, WITH BLOOD RETURN. RCW PERMACATH WITH CLEAN AND INTACT DRESSING. NO BLEEDING NOTED. NO C/O PAIN OR DISCOMFORT AT THIS TIME. NO S/S OF HYPO/ HYPERGLYCEMIA NOTED. SAFETY PRECAUTIONS OBSERVED. CALL LIGHT WITHIN REACH. ALL NEEDS ATTENDED AT THIS TIME. WILL ENDORSE TO NEXT SHIFT FOR NHI.
[2017-09-28 06:54] LABS: CALCIUM, SERUM 8.6 mg/dL (8.5-10.1); CARBON DIOXIDE 22 mmol/L (21-32); CHLORIDE 101 mmol/L (98-107); CREATININE 3.3 mg/dL (0.6-1.3); GLUCOSE 148 mg/dL (74-106); POTASSIUM 4.7 mmol/L (3.5-5.1); SODIUM SERUM 135 mmol/L (136-145); UREA NITROGEN, BLOOD 44 mg/dL (7-18)
[2017-09-28 07:02] LABS: BASOPHILS % (AUTO) 0.1 % (0.0-2.0); EOSINOPHILS % (AUTO) 1.4 % (0.0-6.0); HEMATOCRIT 29 % (33-45); HEMOGLOBIN 9.3 g/dL (11.5-14.8); LYMPHOCYTES # (AUTO) 0.9 /CMM (0.8-4.8); LYMPHOCYTES % (AUTO) 5.1 % (20.0-44.0); MEAN CORPUSCULAR HGB CONC 32 g/dl (31.0-36.0); MEAN CORPUSCULAR VOLUME 91 fL (82-100); MONOCYTES # (AUTO) 1.3 /CMM (0.1-1.30); MONOCYTES % (AUTO) 7.7 % (2.0-12.0); NEUTROPHILS # (AUTO) 14.6 /CMM (1.8-8.9); NEUTROPHILS % (AUTO) 85.7 % (43.0-81.0); PLATELET COUNT (AUTO) 385 /CMM (150-450); RDW COEFFICIENT OF VARIATION 19.5 (11.5-15.0); RED BLOOD CELL COUNT(AUTO) 3.18 MIL/uL (4.0-5.2)
--- NOTE | 2017-09-28 07:30 | NUR ---
RN MS NOTES PT IN BED, ASLEEP, BREATHING PATTERN NORMAL, NO COMPLAINT OF PAIN, CALL LIGHT WITHIN EASY REACH, ISOLATION PRECAUTIONS OBSERVED, KEPT WARM AND COMFORTABLE IN BED.
[2017-09-28 08:00] VITALS: BP 125/58
[2017-09-28] MEDS: BRIMONIDINE TARTRATE OPHT SOLN 5 ML BOTTLE EACHEYE SCH ×2 (08:17→17:46)
[2017-09-28] MEDS: ASPIRIN EC 81 MG TABLET.DR PO SCH (08:17)
[2017-09-28] MEDS: SEVELAMER CARBONATE 800 MG TABLET PO SCH ×3 (08:17→17:39)
[2017-09-28] MEDS: MEGESTROL ACETATE 40 MG TABLET GT SCH (08:17)
[2017-09-28] MEDS: LEVOTHYROXINE SODIUM 125 MCG TABLET PO SCH (08:18)
[2017-09-28] MEDS: ALLOPURINOL 100 MG TABLET PO SCH (08:18)
[2017-09-28] MEDS: CYANOCOBALAMIN 500 MCG TABLET PO SCH (08:18)
[2017-09-28] MEDS: LACTOBACILLUS RHAMNOSUS GG 1 EACH CAP.SPRINK PO SCH ×2 (08:18→17:39)
[2017-09-28] MEDS: FOLIC ACID 1 MG TABLET PO SCH (08:20)
[2017-09-28] MEDS: Fluoxetine 10 mg capsule PO SCH (08:20)
[2017-09-28] MEDS: AMIODARONE HCL 200 MG TABLET PO SCH (09:00)
--- NOTE | 2017-09-28 09:00 | NUR ---
RN MS NOTES CORDARONE HELD, PT HAS SCHEDULED DIALYSIS THIS MORNING, BP AND HR WITHIN NORMAL LIMITS, WILL CONTINUE TO MONITOR.
--- NOTE | 2017-09-28 12:00 | NUR ---
RN MS NOTES PT IN BED, RESTING, DENIES PAIN, NOT IN DISTRESS, DIALYSIS ONGOING AT THIS TIME, TOLERATING TREATMENT WELL, CALL LIGHT WITHIN REACH, NEEDS ATTENDED.
[2017-09-28 16:00] VITALS: BP 125/50
--- NOTE | 2017-09-28 17:11 | NUR ---
RN MS NOTES PT IN BED, AWAKE, NOT IN PAIN OR DISTRESS, NOTED SWELLING AT LEFT ARM, EDIN QUALITY ENGINEER NOTIFIED, ORDERED DUPLEX VENOUS OF LUE, NOTED AND CARRIED OUT, SIMBA GUERRA AT BEDSIDE INFORMED, VERBALIZED UNDERSTANDING.
[2017-09-28] MEDS: LATANOPROST EYE DROP 0.005% 2.5 ML BOTTLE EACHEYE SCH (17:46)
--- NOTE | 2017-09-28 19:00 | NUR ---
RN MS NOTES PT IN BED, AWAKE, ALERT AND ORIENTED, DENIES PAIN, RESPIRATIONS NORMAL AND NOT LABORED, FAMILY AT BEDSIDE, ASSISTED WITH FEEDING PT, TOLERATING CURRENT DIET WELL, PM CARE PROVIDED, ASSISTED WITH TURNING AND REPOSITIONING, ALL NEEDS ATTENDED.
--- NOTE | 2017-09-28 19:20 | NUR ---
MS RN OPENING NOTES: RECEIVED PT IN BED WITH 2 FAMILY MEMBERS AT BEDSIDE. PT AWAKE AT THIS TIME AND IS A/OX2. PT ON 2LPM VIA NC. PT HAS AMBIKA MIDLINE AND IS PATENT AND INTACT. PT ALSO HAS R CHEST WALL PERMACATH AND IS INTACT. BED ALARM ACTIVATED. CALL LIGHT WITHIN PT'S REACH. BED KEPT IN LOW, LOCKED POSITION, AND SIDE RAILS X 2UP. WILL CONTINUE TO MONITOR PT.
[2017-09-28 20:00] VITALS: BP 141/64
[2017-09-28] MEDS: NEOMY SULF/BACITRAC ZN/POLY 15 GM TUBE TP SCH (20:26)
[2017-09-28] MEDS: INSULIN GLARGINE, 100 UNIT/ML CARTRIDGE SQ SCH (22:40)
--- NOTE | 2017-09-28 23:24 | NUR ---
MS RN NOTES: BLOOD SUGAR WAS 175. 4 UNITS OF REGULAR INSULIN ADMINISTERED. WILL CONTINUE TO MONITOR PT.
[2017-09-29] MEDS: BLOOD SUGAR DIAGNOSTIC 1 EACH STRIP IN SCH ×3 (05:08→17:46)
[2017-09-29] MEDS: INSULIN REGULAR, HUMAN 100 UNIT/ML 3 ML VIAL SQ PRN ×3 (05:20→17:50)
--- NOTE | 2017-09-29 05:29 | NUR ---
MS RN NOTES: BLOOD SUGAR THIS AM WAS 107. NO INSULIN WAS ADMINISTERED. WILL CONTINUE TO MONITOR PT.
--- NOTE | 2017-09-29 06:23 | NUR ---
MS RN CLOSING NOTES: ALL NEEDS WERE ATTENDED AND ANTICIPATED. PT ON 2LPM VIA NC AND TOLERATING WELL. BED ALARM ACTIVATED. PT KEPT CLEAN, DRY, AND COMFORTABLE. PT'S MIDLINE REMAINS INTACT. CURRENTLY S/L. PT ALSO HAS R CHEST WALL PERMACATH AND REMAINS INTACT. CALL LIGHT WITHIN PT'S REACH. BED KEPT IN LOW, LOCKED POSITION, AND SIDE RAILS X 2UP. WILL ENDORSE TO AM NURSE FOR NHI.
[2017-09-29 06:58] LABS: CALCIUM, SERUM 8.7 mg/dL (8.5-10.1); CARBON DIOXIDE 26 mmol/L (21-32); CHLORIDE 101 mmol/L (98-107); CREATININE 2.2 mg/dL (0.6-1.3); GLUCOSE 106 mg/dL (74-106); POTASSIUM 4.5 mmol/L (3.5-5.1); SODIUM SERUM 134 mmol/L (136-145); UREA NITROGEN, BLOOD 24 mg/dL (7-18)
--- NOTE | 2017-09-29 07:05 | NUR ---
MS RN NOTES RECEIVED PATIENT IN BED ALERT ORIENTED X 2. NO ACUTE DISTRESS NOTED. BREATHING UNLABORED.NO SOB NOTED. IV ACCESS PATENT AND INTACT. SAFETY MEASURES IN PLACE. CALL LIGHT WITHIN REACH. WILL CONTINUE TO MONITOR ACCORDINGLY.
[2017-09-29] MEDS: LEVOTHYROXINE SODIUM 125 MCG TABLET PO SCH (08:13)
[2017-09-29] MEDS: Fluoxetine 10 mg capsule PO SCH (08:13)
[2017-09-29] MEDS: LACTOBACILLUS RHAMNOSUS GG 1 EACH CAP.SPRINK PO SCH ×2 (08:13→17:42)
[2017-09-29] MEDS: SEVELAMER CARBONATE 800 MG TABLET PO SCH ×3 (08:13→17:42)
[2017-09-29] MEDS: ASPIRIN EC 81 MG TABLET.DR PO SCH (08:14)
[2017-09-29] MEDS: ALLOPURINOL 100 MG TABLET PO SCH (08:14)
[2017-09-29] MEDS: MEGESTROL ACETATE 40 MG TABLET GT SCH (08:14)
[2017-09-29] MEDS: CYANOCOBALAMIN 500 MCG TABLET PO SCH (08:14)
[2017-09-29] MEDS: FOLIC ACID 1 MG TABLET PO SCH (08:14)
[2017-09-29] MEDS: AMIODARONE HCL 200 MG TABLET PO SCH (08:15)
[2017-09-29 08:22] VITALS: BP 119/65
[2017-09-29] MEDS: BRIMONIDINE TARTRATE OPHT SOLN 5 ML BOTTLE EACHEYE SCH ×2 (10:30→17:43)
--- NOTE | 2017-09-29 14:10 | NUR ---
MS RN NOTES SEEN AND EVALUATED BY KAYLI LOMBARDI WITH NEW ORDERS MADE. NOTED AND CARRIED OUT.
[2017-09-29 16:02] VITALS: BP 149/68
[2017-09-29] MEDS: LATANOPROST EYE DROP 0.005% 2.5 ML BOTTLE EACHEYE SCH (17:43)
--- NOTE | 2017-09-29 18:20 | NUR ---
MS MOBILE SOLUTIONS ARCHITECT NOTES PATIENT DISCHARGED HOME WITH STABLE VITAL SIGN . NO ACUTE DISTRESS NOTED. NO SOB NOTED. DISCHARGE INSTRUCTIONS GIVEN TO THE DAUGHTER IN LAW INCLUDING FOLLOW UP APPOINTMENT, VERBALIZED UNDERSTANDING. ALL BELONGINGS ACCOUNTED FOR. MIDLINE ON AMBIKA IN PLACE SECURED WITH DRESSING, NO BLEEDING OR REDNESS NOTED. RCW PERMACATH INTACT WITH DRESSING. PICKED UP VIA AMBULANCE IN A GURNEY ACCOMPANIED BY 2 EMT PERSONNEL IN STABLE CONDITION WITH DAUGHTER AND LAW AND SON RUPALI IS WAITING AT HOME.
== END 2017-09-29 18:23 | disposition home or self-care (01) | DRG 182 ==
LOC: ER 21:45 → TELE 09-15 00:21 → EDBD 09-15 00:21 → ICU 09-15 10:53 → MED 09-15 11:02 → TELE 09-15 16:44 → MED 09-16 10:07
PROVIDERS: ADMIT Nurse Practitioner Acute Care; ATTEND Internal Medicine
PROC: 5A1D70Z Performance of Urinary Filtration, Intermittent, Less than 6 Hours Per Day (ICD-10-PCS; 2017-09-15)
PROC: 5A1D70Z Performance of Urinary Filtration, Intermittent, Less than 6 Hours Per Day (ICD-10-PCS; 2017-09-17)
PROC: 5A1D70Z Performance of Urinary Filtration, Intermittent, Less than 6 Hours Per Day (ICD-10-PCS; 2017-09-19)
PROC: 5A1D70Z Performance of Urinary Filtration, Intermittent, Less than 6 Hours Per Day (ICD-10-PCS; principal; 2017-09-21)
PROC: 05PY03Z Removal of Infusion Device from Upper Vein, Open Approach (ICD-10-PCS; principal; 2017-09-21)
PROC: 05H633Z Insertion of Infusion Device into Left Subclavian Vein, Percutaneous Approach (ICD-10-PCS; 2017-09-26)
PROC: B547ZZA Ultrasonography of Left Subclavian Vein, Guidance (ICD-10-PCS; 2017-09-26)
PROC: 0JHD3XZ Insertion of Tunneled Vascular Access Device into Right Upper Arm Subcutaneous Tissue and Fascia, Percutaneous Approach (ICD-10-PCS; 2017-09-27)
PROC: 05HM33Z Insertion of Infusion Device into Right Internal Jugular Vein, Percutaneous Approach (ICD-10-PCS; 2017-09-27)
PROC: B513YZA Fluoroscopy of Right Jugular Veins using Other Contrast, Guidance (ICD-10-PCS; 2017-09-27)
PROC: 5A1D70Z Performance of Urinary Filtration, Intermittent, Less than 6 Hours Per Day (ICD-10-PCS; 2017-09-28)
PROC: 5A1D70Z Performance of Urinary Filtration, Intermittent, Less than 6 Hours Per Day (ICD-10-PCS; 2017-09-29)
DX: T82.7XXA Infection and inflammatory reaction due to other cardiac and vascular devices, implants and grafts, initial encounter (principal); I21.A1 Myocardial infarction type 2; J96.01 Acute respiratory failure with hypoxia; A41.02 Sepsis due to Methicillin resistant Staphylococcus aureus; E43 Unspecified severe protein-calorie malnutrition; N18.6 End stage renal disease; I38 Endocarditis, valve unspecified; I50.33 Acute on chronic diastolic (congestive) heart failure; J15.6 Pneumonia due to other Gram-negative bacteria; I48.91 Unspecified atrial fibrillation; E03.9 Hypothyroidism, unspecified; Z99.2 Dependence on renal dialysis; E11.22 Type 2 diabetes mellitus with diabetic chronic kidney disease; D63.1 Anemia in chronic kidney disease; E11.65 Type 2 diabetes mellitus with hyperglycemia; E78.5 Hyperlipidemia, unspecified; I13.2 Hypertensive heart and chronic kidney disease with heart failure and with stage 5 chronic kidney disease, or end stage renal disease; I25.10 Atherosclerotic heart disease of native coronary artery without angina pectoris; Z79.4 Long term (current) use of insulin; Z79.82 Long term (current) use of aspirin; Z79.899 Other long term (current) drug therapy; E87.6 Hypokalemia; E11.649 Type 2 diabetes mellitus with hypoglycemia without coma; F32.9 Major depressive disorder, single episode, unspecified; M10.9 Gout, unspecified
CPT/HCPCS: 36415; 36569; 71045-TC; 80048-TC; 80053-TC; 80061-TC; 80076-TC; 80202-TC; 81000-TC; 82728-TC; 82962-TC; 83540-TC; 83605-TC; 83735-TC; 83880; 84100-TC; 84439-TC; 84443-TC; 84484-TC; 85025-TC; 85730-TC; 87040-TC; 87070-TC; 87081-TC; 87086-TC; 87400; 90935-TC; 93307-TC; 93971-TC; 94799-TC; A4216; A4606; A6402; A6403; C1750; C1751; J0456; J0690; J0696; J0885; J1644; J1815; J2543; J2704; J3370; J3490; J7030; J7040; J7050; J7060; P9047; Z7610

== ENCOUNTER 2017-10-22 11:58 | Outpatient (CLI) | payer MEDICARE, MEDICAID ==
[~2017-10-22 11:58] MED LIST: ALLO100T PO; AMIO100T PO; AMLO5TAB7 PO; ASPI-605 PO; ATOR40TA PO; BRIM5DRO3 EACHEYE; CARV6.252 PO; CYAN100071 PO; FLUO-119 PO; FOLI1TAB16 PO; FURO-144 PO; HYDR100T27 PO; INSU100V7 SQ; LATA2.5D7 EACHEYE; LEVO125T8 PO; LISI10TA5 PO; MEGE40TA GT; SEVE800T8 PO
[2017-10-22 12:06] VITALS: BP 133/67
== END 2017-10-22 23:59 | disposition home or self-care (01) ==
LOC: MSC 11:58
PROVIDERS: ATTEND Internal Medicine
DX: I05.9 Rheumatic mitral valve disease, unspecified (principal); I13.2 Hypertensive heart and chronic kidney disease with heart failure and with stage 5 chronic kidney disease, or end stage renal disease; N18.6 End stage renal disease; I50.32 Chronic diastolic (congestive) heart failure; Z99.2 Dependence on renal dialysis; E78.5 Hyperlipidemia, unspecified; E03.9 Hypothyroidism, unspecified; F32.9 Major depressive disorder, single episode, unspecified; D64.9 Anemia, unspecified; I48.91 Unspecified atrial fibrillation; I25.10 Atherosclerotic heart disease of native coronary artery without angina pectoris; Z79.82 Long term (current) use of aspirin; Z96.89 Presence of other specified functional implants